=== PATIENT | female | born 1955 | race Caucasian/White ===

== ENCOUNTER 2023-01-03 11:41 | Observation (INO) | payer OTHER, SELFPAY ==
--- NOTE | ~2023-01-03 | CT_ITS ---
CT head for stroke CLINICAL INFORMATION: Reason for Exam New onset confusion COMPARISON: No prior CT scan available for comparison. TECHNIQUE: Department standard protocol. This CT examination was performed using dose optimization techniques as appropriate, variously including the following: *Automated exposure control *Adjustment of mA and/or kV according to patient size (this includes techniques or standardized protocols for targeted exams where dose is matched to indication/reason for exam; i.e. extremities or head) *Use of iterative reconstruction technique DLP: 623 mGy-cm FINDINGS: CEREBRAL HEMISPHERES: There is no evidence of intra-axial or extra-axial mass, hemorrhage or acute infarct. BRAIN PARENCHYMA: Normal parsons-white matter differentiation. SUBDURAL SPACE: No bleed. BASAL GANGLIA AND PINEAL GLAND: Unremarkable VENTRICLES: Symmetric and normal in size. CEREBELLUM AND BRAINSTEM: No space-occupying mass, hemorrhage or acute infarct. CEREBELLOPONTINE ANGLES: No lesion found. ORBITS: No intraorbital mass. VESSELS: The middle cerebral artery is slightly hyperdense however symmetrically involving both sides suggesting normal probably vascular calcification. SKULL BASE: Unremarkable INCLUDED SINUSES AT SKULL BASE: Near complete opacification of the left maxillary sinus. SKULL AND SKIN: No fracture or bone lesion found. CT/CT head for stroke IMPRESSION: No CT evidence of intracranial space-occupying mass, bleed or infarct. Normal CT scan does not rule out the possibility of hyperacute infarct in the first 12 hours. If patient symptoms persist may consider correlation with MRI, which is more sensitive for early acute infarct. This critical result was discussed with Joellen UGALDE at 12 by telephone at 01/03/2023 12:27 PM and it was ascertained that the content and urgency of the report was understood at the time of direct communication.
--- NOTE | ~2023-01-03 | CT_ITS ---
EXAMINATION: CT angio head neck stroke CLINICAL INFORMATION: New-onset confusion. COMPARISON: CT head 01/03/2023. TECHNIQUE: Laser Machine Operator images were obtained. A CT angiogram of the head and neck was performed in the arterial phase after the intravenous administration of 70 mL Omnipaque 350. Pre and delayed postcontrast images of the head were also obtained. MIP reconstructions were generated in multiple orientations at the acquisition workstation. Multiple three-dimensional surface rendered images and maximum intensity projection images were generated on a dedicated 3-D lab workstation. Arterial stenoses are measured in accordance with NASCET criteria or similar method if applicable. This CT examination was performed using dose optimization techniques as appropriate, including one or more of the following: Automated exposure control, iterative reconstruction, and adjustment of technique factors (mA and/or kVp) according to patient size (this includes techniques or standardized protocols for targeted exams where dose is matched to indication/reason for exam). Fleischner Society criteria for the followup of incidental pulmonary nodules was implemented if appropriate. Total exam dose-length product 1399 mGy-cm FINDINGS: Head: Postcontrast images reveal no abnormal intracranial mass or enhancement. There is no intracranial mass effect or midline shift. Lateral and third ventricles are normal. No hydrocephalus. Calderon-white matter differentiation is preserved and there is no evidence of acute territorial infarct. The calvarium and skull base are intact. Mastoid air cells and middle ear cavities are well aerated. There is mild to moderate mucosal thickening within the ethmoid air cells and total opacification of the left maxillary sinus. CT angiogram neck: The aortic arch apex is normal. Origins of the major aortic branches are widely patent. Common carotid arteries and the carotid bifurcations are normal. No stenosis of the extracranial internal carotid arteries. The cervical segments of the vertebral arteries are widely patent. CT angiogram head: Intracranial internal carotid arteries are patent. The intradural vertebral artery segments and basilar artery are patent. 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 There is also an aneurysm at the left middle cerebral artery bifurcation measuring approximately 2.7 mm from base apex. Each of these aneurysms are well visualized on axial MIP image 109 of 152 series 12. Anterior, middle, and posterior cerebral artery complexes are otherwise unremarkable. Other: Soft tissues of the neck including the thyroid gland are normal. Visualized lung apices are clear. No acute osseous finding. Grossly no evidence of spinal canal compromise. 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 Otherwise unremarkable examination in that there is no stenosis of the cervical carotid or vertebral arteries. No intracranial large vessel occlusion. No evidence of acute territorial infarct or hemorrhage. No abnormal intracranial mass or enhancement. This critical result was discussed with Joellen Lazar at 12:45 PM on 01/03/2023 and it was ascertained that the content and urgency of the report was understood at the time of direct communication.
--- NOTE | ~2023-01-03 | XR_ITS ---
EXAMINATION: XR chest 2V CLINICAL INFORMATION: Confusion COMPARISON: No prior chest x-ray available in our system for comparison at the time of this dictation. TECHNIQUE: XR chest 2V Lungs and Jing: Both lungs are clear. Pleura: Normal. Costophrenic angles are sharp. No pneumothorax. Heart: The heart is normal in size. Mediastinum: The mediastinum is within normal limits.. Bones: Skeletal structures included are normal for patient's age. XR/XR chest 2V IMPRESSION: Normal chest x-ray.
[2023-01-03 11:51] VITALS: BP 184/115; PULSE 88; RESP 18; TEMP 36.7; O2SAT 94; BMI 20.5
--- NOTE | 2023-01-03 11:53 | ED_ITS ---
HPI - General Adult General Chief complaint: Altered Mental Status <TRAM Zamora - Last Filed: 01/03/23 11:56> Stated complaint: Unable to remember whats going on <TRAM Zamora - Last Filed: 01/03/23 11:56> Time Seen by Provider: 01/03/23 12:02 <TRAM Zamora - Last Filed: 01/03/23 11:56> Source: patient <TRAM Romero - Last Filed: 01/03/23 14:44> Mode of arrival: ambulatory <TRAM Romero - Last Filed: 01/03/23 14:44> History of Present Illness HPI narrative: 67-year-old female past medical history of smoking cigarettes x50 years, recently stopped with outpatient Wellbutrin prescribed by PCP 2 weeks ago, presenting to the ED with friend for noted acute onset confusion 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 Last known well time 10:30AM. Friend reports patient was frantically looking through cabinets of vehicle for cigarette, & had no recollection of previous smoking cessation, acting bizarre. Patient A&O x2 (does not know president or year). Denies recent head injury/fall or trauma, CP/SOB, abdominal pain, headache, weakness <TRAM Romero - Last Filed: 01/03/23 14:44> Onset (ago): hour(s) <TRAM Romero - Last Filed: 01/03/23 14:44> Related Data Home medications: Home Medications Medication Instructions Recorded Confirmed albuterol sulfate 90 mcg/actuation 2 puff inhalation Q4H PRN 01/03/23 01/03/23 aerosol inhaler Shortness Of Breath Or Wheezing alendronate 70 mg tablet 70 mg PO TU@0900 01/03/23 01/03/23 biotin 5 mg tablet 5 mg PO DAILY 01/03/23 01/03/23 bupropion HCl 150 mg tablet,12 hr 150 mg PO BID 01/03/23 01/03/23 sustained-release calcium citrate 450 mg PO BID 01/03/23 01/03/23 levocetirizine 5 mg tablet 5 mg PO DAILY 01/03/23 01/03/23 multivit with 1 tab PO DAILY 01/03/23 01/03/23 srpebedc-nnyw-YQ-lutein 8 mg iron-400 mcg-300 mcg tablet (Centrum Silver Women) simvastatin 20 mg tablet 20 mg PO DAILY 01/03/23 01/03/23 vitamin D3 125 mcg (5,000 1 cap PO MOWEFR@0900 01/03/23 01/03/23 unit)-vitamin K2 90 mcg capsule <TRAM Zamora Last Filed: 01/03/23 11:56> Allergies/adverse reactions: Allergies Allergy/AdvReac Type Severity Reaction Status Date / Time No Known Allergies Allergy Verified 01/03/23 11:49 <TRAM Zamora Last Filed: 01/03/23 11:56> Review of Systems Review of Systems: Constitutional: No Fever, No Chills, No Fatigue, No Malaise ENT/Mouth: No Ear Pain, No Nasal Congestion,No sore throat, No Rhinorrhea, No Swallowing Difficulty Eyes: No Eye Pain, No Swelling, No Redness, No Vision Changes Cardiovascular: No Chest Pain, No SOB, No Edema, No Palpitations Respiratory: No Cough, No Sputum, No Dyspnea Gastrointestinal: No Nausea, No Vomiting, No Diarrhea, No Constipation, No Ab dominal pain Genitourinary: No Dysuria, No Hematuria, No Urinary Incontinence/retention, No Flank Pain Musculoskeletal: No joint pain, No Myalgias Skin: No Skin Lesions, No rash Neuro: No Weakness, No Numbness, No Paresthesias, No Loss of Consciousness, No Dizziness, No Headache, +confusion <TRAM Romero Last Filed: 01/03/23 14:44> Yes all other systems are reviewed and are negative <TRAM Romero Last Filed: 01/03/23 14:44> Constitutional: Constitutional: Reports as per HPI <TRAM Romero Last Filed: 01/03/23 14:44> Neurologic: Denies Abnormal speech present and Reports confusion <TRAM Romero Last Filed: 01/03/23 14:44> Psychiatric: Psychiatric: Reports confusion <TRAM Romero Last Fi led: 01/03/23 14:44> [facility] Past Medical History Attestation statement: The following information was validated with the patient. <TRAM Romero Last Filed: 01/03/23 14:44> Social History Social History: Social History Alcohol intake: current Alcohol intake frequency: holidays/special occasions only Smoked in Last 30 Days: Yes Use of substances other than those prescribed or required for medical reasons: No Advance Directives: No <TRAM Zamora - Last Filed: 01/03/23 11:56> Physical Exam ED Vital Signs: Vital Signs - 24 hr 01/03/23 11:51 01/03/23 12:36 01/03/23 14:27 Temperature 98.1 F 97 F Pulse Rate 88 67 65 Respiratory Rate 18 18 18 Blood Pressure 184/115 H 193/102 H 169/104 H Pulse Oximetry 94 97 98 Oxygen Delivery Method Room Air Room Air Room Air BMI result Body Mass Index 20.5 <TRAM Zamora Last Filed: 01/03/23 11:56> Vital Signs - 24 hr 01/03/23 11:51 01/03/23 12:36 01/03/23 14:27 Temperature 98.1 F 97 F Pulse Rate 88 67 65 Respiratory Rate 18 18 18 Blood Pressure 184/115 H 193/102 H 169/104 H Pulse Oximetry 94 97 98 Oxygen Delivery Method Room Air Room Air Room Air BMI result Body Mass Index 20.5 <TRAM Romero - Last Filed: 01/03/23 14:44> Const General: cooperative, healthy appearing, comfortable, no acute distress and confusion <TRAM Romero Last Filed: 01/03/23 14:44> Orientation/consciousness: oriented to person, oriented to place and confusion <TRAM Romero Last Filed: 01/03/23 14:44> HENMT Head: Yes normal to inspection and Yes atraumatic <TRAM Romero Last Filed: 01/03/23 14:44> Ears: hearing grossly normal bilaterally <TRAM Romero Last Filed: 01/03/23 14:44> General nose exam: Normal external nose present <TRAM Romero Last Filed: 01/03/23 14:44> Face and sinus: Yes normal facial exam <TRAM Romero Last Filed: 01/03/23 14:44> Throat: Yes posterior oropharynx normal <Joellen Trejochaitanyat PA - Last Filed: 01/03/23 14:44> Eyes General: appearance normal, both eyes and all related structures <Joellenlyn Trejochaitanyat PA - Last Filed: 01/03/23 14:44> Pupils: Equal, round and reactive pupils present <Joellenlyn Trejochaitanyat, PA - Last Filed: 01/03/23 14:44> EOM: EOMs intact bilaterally <Joellen Poulchaitanyat, PA - Last Filed: 01/03/23 14:44> Neck Neck: Yes normal visual inspection and Yes no meningeal signs <Joellen Mayachaitanyat, PA - Last Filed: 01/03/23 14:44> Resp Effort & Inspection: normal respiratory effort and no respiratory distress <Joellen Trejochaitanyat, PA - Last Filed: 01/03/23 14:44> Auscultation: clear to auscultation bilaterally, no rhonchi and no wheezes <Joellen Trejochaitanyat PA - Last Filed: 01/03/23 14:44> Cardio Rate: regular rate <Joellen Trejochaitanyat, PA - Last Filed: 01/03/23 14:44> Heart sounds: S1 normal heart sound present and S2 normal heart sound present <Joellen Trejochaitanyat PA - Last Filed: 01/03/23 14:44> GI Inspection: Yes normal to inspection <Joellen Trejochaitanyat, PA - Last Filed: 01/03/23 14:44> Palpation (GI): Soft to palpation, nontender, no guarding and not rigid <Joellen Mayachaitanyat PA - Last Filed: 01/03/23 14:44> General: Yes no CVA tenderness <Joellen Mayachaitanyat, PA - Last Filed: 01/03/23 14:44> Back/Spine/Pelvis Back: no CVA tenderness <Joellen Poulchaitanyat, PA - Last Filed: 01/03/23 14:44> Skin Rashes: no rashes <Joellen Poulchaitanyat, PA - Last Filed: 01/03/23 14:44> Wounds: no wounds <Joellen Poulchaitanyat PA - Last Filed: 01/03/23 14:44> Neuro Other: + mild left-sided facial droop (patient reports this is chronic) <TRAM Romero - Last Filed: 01/03/23 14:44> General: oriented to person, oriented to place, tone normal, moves all extremities, no meningeal signs, no focal motor deficits, CN's II-XI intact bilaterally and confusion <Joellen Lazar PA - Last Filed: 01/03/23 14:44> Cranial nerves: Yes CN's II-XII intact bilaterally and Yes Equal, round and reactive pupils present <Joellen Lazar PA - Last Filed: 01/03/23 14:44> Speech: No Abnormal speech present <Joellen Lazar PA - Last Filed: 01/03/23 14:44> Gait exam (Neuro): Normal gait present <TRAM Romero - Last Filed: 01/03/23 14:44> Motor exam (neuro): 5/5 motor strength present throughout, Pronator motor function not pre sent, no tremor noted and no asterixis <TRAM Romero - Last Filed: 01/03/23 14:44> Coordination: bqvyko-gg-htom test normal <TRAM Romero - Last Filed: 01/03/23 14:44> Romberg Test: Negative <TRAM Romero - Last Filed: 01/03/23 14:44> Extrem General: Yes normal to inspection and Yes no pedal edema <TRAM Romero - Last Filed: 01/03/23 14:44> NIH Stroke Scale Internal: Initial- Upon Arrival <TRAM Romero - Last Filed: 01/03/23 14:44> Level of Consciousness: Alert <RTAM Romero - Last Filed: 01/03/23 14:44> Level of Consciousness Questions: Answers both questions correctly <TRAM Romero - Last Filed: 01/03/23 14:44> Level of Consciousness Commands: Performs both tasks correctly <TRAM Romero - Last Filed: 01/03/23 14:44> Best Gaze: Normal <TRAM Romero - Last Filed: 01/03/23 14:44> Visual: No visual loss <Joellen Pouliot, PA - Last Filed: 01/03/23 14:44> Facial Palsy: Normal <Joellen Lazar PA - Last Filed: 01/03/23 14:44> Motor Arm (Right): No drift <Joellen Lazar PA - Last Filed: 01/03/23 14:44> Motor Arm (Left): No drift <Joellen Lazar PA - Last Filed: 01/03/23 14:44> Motor Leg (Right): No drift <Joellen Lazar PA - Last Filed: 01/03/23 14:44> Motor Leg (Left): No drift <Joellen Lazar PA - Last Filed: 01/03/23 14:44> Limb Ataxia: Absent <Joellen Lazar PA - Last Filed: 01/03/23 14:44> Sensory: Normal <Joellen Lazar PA - Last Filed: 01/03/23 14:44> Best Language: No aphasia <TRAM Romero - Last Filed: 01/03/23 14:44> Dysarthia: Normal <Joellen Lazar PA - Last Filed: 01/03/23 14:44> Extinction and Inattention: No abnormality <TRAM Romero - Last Filed: 01/03/23 14:44> Score: 0 <TRAM Romero - Last Filed: 01/03/23 14:44> Course Course Course Narrative: RME performed by Anna Glover PA-C. Patient is a 67 year old assigned female at presenting to the emergency department with worsening confusion over the last 1.5 hours. Patient quit smoking 2 weeks ago, doesn't remember that. Patient's guest at bed side states that she was started on a medication to help quit smoking but he isn't sure what it was. Patient's daughter is on the way down. Labs, imaging, and swab ordered. Patient placed back in the waiting room pending room availability and results. <TRAM Zamora Last Filed: 01/03/23 11:56> RME performed by Anna Glover PA-C. Patient is a 67 year old assigned female at presenting to the emergency department with worsening confusion over the last 1.5 hours. Patient quit smoking 2 weeks ago, doesn't remember that. Patient's guest at bed side states that she was started on a medication to help quit smoking but he isn't sure what it was. Patient's daughter is on the way down. Labs, imaging, and swab ordered. Patient placed back in the waiting room pending room availability and results. CT head for stroke IMPRESSION: No CT evidence of intracranial space-occupying mass, bleed or infarct. ? Normal CT scan does not rule out the possibility of hyperacute infarct in the first 12 hours. If patient symptoms persist may consider correlation with MRI, which is more sensitive for early acute infarct. CT angio head? 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 Otherwise unremarkable examination in that there is no stenosis of the cervical carotid or vertebral arteries. No intracranial large vessel occlusion. No evidence of acute territorial infarct or hemorrhage. No abnormal intracranial mass or enhancement. > case discussed with Neurology, Dr. Castillo, does not believe this is an acute stroke XR chest 2V IMPRESSION: Normal chest x-ray. -labs unremarkable. UA negative. Tox screen negative >> plan to admit for further management <TRAM Romero - Last Filed: 01/03/23 14:44> Medications Administered Discontinued Medications Generic Name Dose Route Start Last Admin Trade Name Freq PRN Reason Stop Dose Admin Iohexol 70 ml 01/03/23 12:30 01/03/23 12:30 Iohexol 350 Mg/Ml 100 Ml Infus..Btl IV 01/03/23 12:31 70 ml ONCE ONE Administration <TRAM Zamora - Last Filed: 01/03/23 11:56> Medications Administered Discontinued Medications Generic Name Dose Route Start Last Admin Trade Name Freq PRN Reason Stop Dose Admin Iohexol 70 ml 01/03/23 12:30 01/03/23 12:30 Iohexol 350 Mg/Ml 100 Ml Infus..Btl IV 01/03/23 12:31 70 ml ONCE ONE Administration <TRAM Romero - Last Filed: 01/03/23 14:44> Medical Decision Making Medical Decision Making MDM Narrative: 67-year-old female past medical history of smoking cigarettes x50 years, recently stopped with outpatient Wellbutrin prescribed by PCP 2 weeks ago, presenting to the ED with friend for noted acute onset confusion 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 Last known well time 10:30AM. On exam hypertensive, anxious, tearful, confused does not know new President or year, mild left-sided facial droop (patient reports is chronic), exam otherwise nonfocal, ambulating with steady gait. Concern for acute CVA vs TIA vs substance abuse vs ?Medication reaction. Rule out metabolic and infectious etiologies Patient stroke protocoled Plan: EKG, labs, UA, CXR, head CT, CTA head and neck, drug screen, admission Please refer to course for remaining clinical decision making, interpretation of labs/imaging results, and discussions with consultants and/or family members. <TRAM Romero - Last Filed: 01/03/23 14:44> Differential Diagnosis Differential Diagnoses: The differential diagnosis associated with the presentation includes <TRAM Romero - Last Filed: 01/03/23 14:44> As above <TRAM Romero - Last Filed: 01/03/23 14:44> Admission/Observation Consideration of admission/observation: Escalation of care including admission/observation considered <TRAM Romero - Last Filed: 01/03/23 14:44> Lab Data MDM Lab Attestation statement: I reviewed the patient's lab results. <TRAM Romero - Last Filed: 01/03/23 14:44> Result Diagrams: 01/03/23 12:15 01/03/23 12:15 <TRAM Zamora - Last Filed: 01/03/23 11:56> Labs: Lab Results 01/03/23 01/03/23 01/03/23 Range/Units 12:15 12:15 12:15 WBC 11.0 H (4.8-10.8) X10*3/uL RBC 5.09 (4.20-5.50) X10*6/uL Hgb 15.8 (12.0-16.0) g/dl Hct 46.7 (37.0-47.0) % MCV 91.7 (80.0-98.0) fL MCH 31.0 (27.0-33.0) pg MCHC 33.8 (31.0-35.0) g/dl RDW 13.2 (11.0-16.0) % Plt Count 327 (160-400) X10*3/uL MPV 9.4 (9.4-12.3) fL Immature Gran % (Auto) 0.2 (0.0-0.4) % Neut % (Auto) 57.4 (45-73) % Lymph % (Auto) 30.3 (20-40) % Rapides % (Auto) 6.8 (2-11) % Eos % (Auto) 4.3 H (0-4) % Baso % (Auto) 1.0 (0-2) % Lymph # (Auto) 3.3 (1.2-4.9) X10*3/uL [place] # (Auto) 0.8 (0.1-1.2) X10*3/uL Eos # (Auto) 0.5 H (0.0-0.4) X10*3/uL Baso # (Auto) 0.1 (0.0-0.2) X10*3/uL Abs Immat Gran (auto) 0.02 (0.00-0.03) X10*3/uL Absolute Neuts (auto) 6.3 (2.0-8.3) x10*3/uL Absolute Nucleated RBC 0.000 (0.0-0.012) X10*3/uL Nucleated RBC % (auto) 0.0 (0.0-0.2) /100WBC PT (10.0-13.1) SEC Whole Blood PT (11.1-13.5) sec INR (0.9-1.1) Whole Blood INR (0.9-1.1) APTT (26.0-36.4) SEC Sodium 141 (135-145) mmol/L Potassium 5.0 (3.3-5.1) mmol/L Chloride 108 (96-108) mmol/L Carbon Dioxide 22 (22-29) mmol/L Anion Gap 16 (12-20) BUN 15 (9-16) mg/dL Creatinine 0.71 (0.5-1.4) mg/dL Estim Creat Clear Calc 69.0 Estimated GFR > 60 POC Glucose (60-115) mg/dL Random Glucose 90 (60-115) mg/dL Calcium 10.0 (8.4-10.2) mg/dL Magnesium 2.2 (1.6-2.6) mg/dL Total Bilirubin 0.7 (0.0-1.0) mg/dL AST 33 H (5-31) U/L ALT 25 (0-31) U/L Alkaline Phosphatase 69 (39-117) U/L Ammonia 23 (13-55) umol/L Troponin I High Sens (<3.5-17.0) ng/L Total Protein 7.6 (6.5-8.0) g/dL Albumin 4.6 (3.5-5.0) g/dL Urine Color Urine Appearance Urine pH (5.0-9.0) Ur Specific Blackwell (1.005-1.025) Urine Protein (Neg-Trace) mg/dL Urine Glucose (UA) (Negative) mg/dL Urine Ketones (Negative) mg/dL Urine Blood (Negative) Urine Nitrite (Negative) Ur Leukocyte Esterase (Negative) Urine Opiates Screen (Not Detect) Urine Fentanyl Screen (Not Detect) Ur Barbiturates Screen (Not Detect) Ur Phencyclidine Scrn (Not Detect) Ur Amphetamines Screen (Not Detect) U Benzodiazepines Scrn (Not Detect) Urine Cocaine Screen (Not Detect) U Marijuana (THC) Screen (Not Detect) Ethyl Alcohol mg/dL COVID-19 ([facility]) (Negative) COVID-19 Clin Com 01/03/23 01/03/23 01/03/23 Range/Units 12:15 12:15 12:15 WBC (4.8-10.8) X10*3/uL RBC (4.20-5.50) X10*6/uL Hgb (12.0-16.0) g/dl Hct (37.0-47.0) % MCV (80.0-98.0) fL MCH (27.0-33.0) pg MCHC (31.0-35.0) g/dl RDW (11.0-16.0) % Plt Count (160-400) X10*3/uL MPV (9.4-12.3) fL Immature Gran % (Auto) (0.0-0.4) % Neut % (Auto) (45-73) % Lymph % (Auto) (20-40) % Rapides % (Auto) (2-11) % Eos % (Auto) (0-4) % Baso % (Auto) (0-2) % Lymph # (Auto) (1.2-4.9) X10*3/uL [place] # (Auto) (0.1-1.2) X10*3/uL Eos # (Auto) (0.0-0.4) X10*3/uL Baso # (Auto) (0.0-0.2) X10*3/uL Abs Immat Gran (auto) (0.00-0.03) X10*3/uL Absolute Neuts (auto) (2.0-8.3) x10*3/uL Absolute Nucleated RBC (0.0-0.012) X10*3/uL Nucleated RBC % (auto) (0.0-0.2) /100WBC PT 10.3 (10.0-13.1) SEC Whole Blood PT (11.1-13.5) sec INR 0.9 (0.9-1.1) Whole Blood INR (0.9-1.1) APTT 34.1 (26.0-36.4) SEC Sodium (135-145) mmol/L Potassium (3.3-5.1) mmol/L Chloride (96-108) mmol/L Carbon Dioxide (22-29) mmol/L Anion Gap (12-20) BUN (9-16) mg/dL Creatinine (0.5-1.4) mg/dL Estim Creat Clear Calc Estimated GFR POC Glucose (60-115) mg/dL Random Glucose (60-115) mg/dL Calcium (8.4-10.2) mg/dL Magnesium (1.6-2.6) mg/dL Total Bilirubin (0.0-1.0) mg/dL AST (5-31) U/L ALT (0-31) U/L Alkaline Phosphatase (39-117) U/L Ammonia (13-55) umol/L Troponin I High Sens 4.9 (<3.5-17.0) ng/L Total Protein (6.5-8.0) g/dL Albumin (3.5-5.0) g/dL Urine Color Urine Appearance Urine pH (5.0-9.0) Ur Specific Blackwell (1.005-1.025) Urine Protein (Neg-Trace) mg/dL Urine Glucose (UA) (Negative) mg/dL Urine Ketones (Negative) mg/dL Urine Blood (Negative) Urine Nitrite (Negative) Ur Leukocyte Esterase (Negative) Urine Opiates Screen (Not Detect) Urine Fentanyl Screen (Not Detect) Ur Barbiturates Screen (Not Detect) Ur Phencyclidine Scrn (Not Detect) Ur Amphetamines Screen (Not Detect) U Benzodiazepines Scrn (Not Detect) Urine Cocaine Screen (Not Detect) U Marijuana (THC) Screen (Not Detect) Ethyl Alcohol < 10 mg/dL COVID-19 ([facility]) (Negative) COVID-19 Clin Com 01/03/23 01/03/23 01/03/23 Range/Units 12:22 12:22 12:42 WBC (4.8-10.8) X10*3/uL RBC (4.20-5.50) X10*6/uL Hgb (12.0-16.0) g/dl Hct (37.0-47.0) % MCV (80.0-98.0) fL MCH (27.0-33.0) pg MCHC (31.0-35.0) g/dl RDW (11.0-16.0) % Plt Count (160-400) X10*3/uL MPV (9.4-12.3) fL Immature Gran % (Auto) (0.0-0.4) % Neut % (Auto) (45-73) % Lymph % (Auto) (20-40) % Rapides % (Auto) (2-11) % Eos % (Auto) (0-4) % Baso % (Auto) (0-2) % Lymph # (Auto) (1.2-4.9) X10*3/uL [place] # (Auto) (0.1-1.2) X10*3/uL Eos # (Auto) (0.0-0.4) X10*3/uL Baso # (Auto) (0.0-0.2) X10*3/uL Abs Immat Gran (auto) (0.00-0.03) X10*3/uL Absolute Neuts (auto) (2.0-8.3) x10*3/uL Absolute Nucleated RBC (0.0-0.012) X10*3/uL Nucleated RBC % (auto) (0.0-0.2) /100WBC PT (10.0-13.1) SEC Whole Blood PT 12.5 (11.1-13.5) sec INR (0.9-1.1) Whole Blood INR 1.0 (0.9-1.1) APTT (26.0-36.4) SEC Sodium (135-145) mmol/L Potassium (3.3-5.1) mmol/L Chloride (96-108) mmol/L Carbon Dioxide (22-29) mmol/L Anion Gap (12-20) BUN (9-16) mg/dL Creatinine (0.5-1.4) mg/dL Estim Creat Clear Calc Estimated GFR POC Glucose 97 (60-115) mg/dL Random Glucose (60-115) mg/dL Calcium (8.4-10.2) mg/dL Magnesium (1.6-2.6) mg/dL Total Bilirubin (0.0-1.0) mg/dL AST (5-31) U/L ALT (0-31) U/L Alkaline Phosphatase (39-117) U/L Ammonia (13-55) umol/L Troponin I High Sens (<3.5-17.0) ng/L Total Protein (6.5-8.0) g/dL Albumin (3.5-5.0) g/dL Urine Color Urine Appearance Urine pH (5.0-9.0) Ur Specific Blackwell (1.005-1.025) Urine Protein (Neg-Trace) mg/dL Urine Glucose (UA) (Negative) mg/dL Urine Ketones (Negative) mg/dL Urine Blood (Negative) Urine Nitrite (Negative) Ur Leukocyte Esterase (Negative) Urine Opiates Screen (Not Detect) Urine Fentanyl Screen (Not Detect) Ur Barbiturates Screen (Not Detect) Ur Phencyclidine Scrn (Not Detect) Ur Amphetamines Screen (Not Detect) U Benzodiazepines Scrn (Not Detect) Urine Cocaine Screen (Not Detect) U Marijuana (THC) Screen (Not Detect) Ethyl Alcohol mg/dL COVID-19 ([facility]) Negative (Negative) COVID-19 Clin Com See Note 01/03/23 01/03/23 Range/Units 12:58 12:58 WBC (4.8-10.8) X10*3/uL RBC (4.20-5.50) X10*6/uL Hgb (12.0-16.0) g/dl Hct (37.0-47.0) % MCV (80.0-98.0) fL MCH (27.0-33.0) pg MCHC (31.0-35.0) g/dl RDW (11.0-16.0) % Plt Count (160-400) X10*3/uL MPV (9.4-12.3) fL Immature Gran % (Auto) (0.0-0.4) % Neut % (Auto) (45-73) % Lymph % (Auto) (20-40) % Rapides % (Auto) (2-11) % Eos % (Auto) (0-4) % Baso % (Auto) (0-2) % Lymph # (Auto) (1.2-4.9) X10*3/uL [place] # (Auto) (0.1-1.2) X10*3/uL Eos # (Auto) (0.0-0.4) X10*3/uL Baso # (Auto) (0.0-0.2) X10*3/uL Abs Immat Gran (auto) (0.00-0.03) X10*3/uL Absolute Neuts (auto) (2.0-8.3) x10*3/uL Absolute Nucleated RBC (0.0-0.012) X10*3/uL Nucleated RBC % (auto) (0.0-0.2) /100WBC PT (10.0-13.1) SEC Whole Blood PT (11.1-13.5) sec INR (0.9-1.1) Whole Blood INR (0.9-1.1) APTT (26.0-36.4) SEC Sodium (135-145) mmol/L Potassium (3.3-5.1) mmol/L Chloride (96-108) mmol/L Carbon Dioxide (22-29) mmol/L Anion Gap (12-20) BUN (9-16) mg/dL Creatinine (0.5-1.4) mg/dL Estim Creat Clear Calc Estimated GFR POC Glucose (60-115) mg/dL Random Glucose (60-115) mg/dL Calcium (8.4-10.2) mg/dL Magnesium (1.6-2.6) mg/dL Total Bilirubin (0.0-1.0) mg/dL AST (5-31) U/L ALT (0-31) U/L Alkaline Phosphatase (39-117) U/L Ammonia (13-55) umol/L Troponin I High Sens (<3.5-17.0) ng/L Total Protein (6.5-8.0) g/dL Albumin (3.5-5.0) g/dL Urine Color Yellow Urine Appearance Clear Urine pH 6.5 (5.0-9.0) Ur Specific Blackwell 1.020 (1.005-1.025) Urine Protein Negative (Neg-Trace) mg/dL Urine Glucose (UA) Negative (Negative) mg/dL Urine Ketones Negative (Negative) mg/dL Urine Blood Negative (Negative) Urine Nitrite Negative (Negative) Ur Leukocyte Esterase Negative (Negative) Urine Opiates Screen Not Detected (Not Detect) Urine Fentanyl Screen Not Detected (Not Detect) Ur Barbiturates Screen Not Detected (Not Detect) Ur Phencyclidine Scrn Not Detected (Not Detect) Ur Amphetamines Screen Not Detected (Not Detect) U Benzodiazepines Scrn Not Detected (Not Detect) Urine Cocaine Screen Not Detected (Not Detect) U Marijuana (THC) Screen Not Detected (Not Detect) Ethyl Alcohol mg/dL COVID-19 ([facility]) (Negative) COVID-19 Clin Com <TRAM Zamora - Last Filed: 01/03/23 11:56> Lab Results 01/03/23 01/03/23 01/03/23 Range/Units 12:15 12:15 12:15 WBC 11.0 H (4.8-10.8) X10*3/uL RBC 5.09 (4.20-5.50) X10*6/uL Hgb 15.8 (12.0-16.0) g/dl Hct 46.7 (37.0-47.0) % MCV 91.7 (80.0-98.0) fL MCH 31.0 (27.0-33.0) pg MCHC 33.8 (31.0-35.0) g/dl RDW 13.2 (11.0-16.0) % Plt Count 327 (160-400) X10*3/uL MPV 9.4 (9.4-12.3) fL Immature Gran % (Auto) 0.2 (0.0-0.4) % Neut % (Auto) 57.4 (45-73) % Lymph % (Auto) 30.3 (20-40) % Rapides % (Auto) 6.8 (2-11) % Eos % (Auto) 4.3 H (0-4) % Baso % (Auto) 1.0 (0-2) % Lymph # (Auto) 3.3 (1.2-4.9) X10*3/uL [place] # (Auto) 0.8 (0.1-1.2) X10*3/uL Eos # (Auto) 0.5 H (0.0-0.4) X10*3/uL Baso # (Auto) 0.1 (0.0-0.2) X10*3/uL Abs Immat Gran (auto) 0.02 (0.00-0.03) X10*3/uL Absolute Neuts (auto) 6.3 (2.0-8.3) x10*3/uL Absolute Nucleated RBC 0.000 (0.0-0.012) X10*3/uL Nucleated RBC % (auto) 0.0 (0.0-0.2) /100WBC PT (10.0-13.1) SEC Whole Blood PT (11.1-13.5) sec INR (0.9-1.1) Whole Blood INR (0.9-1.1) APTT (26.0-36.4) SEC Sodium 141 (135-145) mmol/L Potassium 5.0 (3.3-5.1) mmol/L Chloride 108 (96-108) mmol/L Carbon Dioxide 22 (22-29) mmol/L Anion Gap 16 (12-20) BUN 15 (9-16) mg/dL Creatinine 0.71 (0.5-1.4) mg/dL Estim Creat Clear Calc 69.0 Estimated GFR > 60 POC Glucose (60-115) mg/dL Random Glucose 90 (60-115) mg/dL Calcium 10.0 (8.4-10.2) mg/dL Magnesium 2.2 (1.6-2.6) mg/dL Total Bilirubin 0.7 (0.0-1.0) mg/dL AST 33 H (5-31) U/L ALT 25 (0-31) U/L Alkaline Phosphatase 69 (39-117) U/L Ammonia 23 (13-55) umol/L Troponin I High Sens (<3.5-17.0) ng/L Total Protein 7.6 (6.5-8.0) g/dL Albumin 4.6 (3.5-5.0) g/dL Urine Color Urine Appearance Urine pH (5.0-9.0) Ur Specific [place] (1.005-1.025) Urine Protein (Neg-Trace) mg/dL Urine Glucose (UA) (Negative) mg/dL Urine Ketones (Negative) mg/dL Urine Blood (Negative) Urine Nitrite (Negative) Ur Leukocyte Esterase (Negative) Urine Opiates Screen (Not Detect) Urine Fentanyl Screen (Not Detect) Ur Barbiturates Screen (Not Detect) Ur Phencyclidine Scrn (Not Detect) Ur Amphetamines Screen (Not Detect) U Benzodiazepines Scrn (Not Detect) Urine Cocaine Screen (Not Detect) U Marijuana (THC) Screen (Not Detect) Ethyl Alcohol mg/dL COVID-19 ([facility]) (Negative) COVID-19 Clin Com 01/03/23 01/03/23 01/03/23 Range/Units 12:15 12:15 12:15 WBC (4.8-10.8) X10*3/uL RBC (4.20-5.50) X10*6/uL Hgb (12.0-16.0) g/dl Hct (37.0-47.0) % MCV (80.0-98.0) fL MCH (27.0-33.0) pg MCHC (31.0-35.0) g/dl RDW (11.0-16.0) % Plt Count (160-400) X10*3/uL MPV (9.4-12.3) fL Immature Gran % (Auto) (0.0-0.4) % Neut % (Auto) (45-73) % Lymph % (Auto) (20-40) % [place] % (Auto) (2-11) % Eos % (Auto) (0-4) % Baso % (Auto) (0-2) % Lymph # (Auto) (1.2-4.9) X10*3/uL [place] # (Auto) (0.1-1.2) X10*3/uL Eos # (Auto) (0.0-0.4) X10*3/uL Baso # (Auto) (0.0-0.2) X10*3/uL Abs Immat Gran (auto) (0.00-0.03) X10*3/uL Absolute Neuts (auto) (2.0-8.3) x10*3/uL Absolute Nucleated RBC (0.0-0.012) X10*3/uL Nucleated RBC % (auto) (0.0-0.2) /100WBC PT 10.3 (10.0-13.1) SEC Whole Blood PT (11.1-13.5) sec INR 0.9 (0.9-1.1) Whole Blood INR (0.9-1.1) APTT 34.1 (26.0-36.4) SEC Sodium (135-145) mmol/L Potassium (3.3-5.1) mmol/L Chloride (96-108) mmol/L Carbon Dioxide (22-29) mmol/L Anion Gap (12-20) BUN (9-16) mg/dL Creatinine (0.5-1.4) mg/dL Estim Creat Clear Calc Estimated GFR POC Glucose (60-115) mg/dL Random Glucose (60-115) mg/dL Calcium (8.4-10.2) mg/dL Magnesium (1.6-2.6) mg/dL Total Bilirubin (0.0-1.0) mg/dL AST (5-31) U/L ALT (0-31) U/L Alkaline Phosphatase (39-117) U/L Ammonia (13-55) umol/L Troponin I High Sens 4.9 (<3.5-17.0) ng/L Total Protein (6.5-8.0) g/dL Albumin (3.5-5.0) g/dL Urine Color Urine Appearance Urine pH (5.0-9.0) Ur Specific [place] (1.005-1.025) Urine Protein (Neg-Trace) mg/dL Urine Glucose (UA) (Negative) mg/dL Urine Ketones (Negative) mg/dL Urine Blood (Negative) Urine Nitrite (Negative) Ur Leukocyte Esterase (Negative) Urine Opiates Screen (Not Detect) Urine Fentanyl Screen (Not Detect) Ur Barbiturates Screen (Not Detect) Ur Phencyclidine Scrn (Not Detect) Ur Amphetamines Screen (Not Detect) U Benzodiazepines Scrn (Not Detect) Urine Cocaine Screen (Not Detect) U Marijuana (THC) Screen (Not Detect) Ethyl Alcohol < 10 mg/dL COVID-19 ([facility]) (Negative) COVID-19 Clin Com 01/03/23 01/03/23 01/03/23 Range/Units 12:22 12:22 12:42 WBC (4.8-10.8) X10*3/uL RBC (4.20-5.50) X10*6/uL Hgb (12.0-16.0) g/dl Hct (37.0-47.0) % MCV (80.0-98.0) fL MCH (27.0-33.0) pg MCHC (31.0-35.0) g/dl RDW (11.0-16.0) % Plt Count (160-400) X10*3/uL MPV (9.4-12.3) fL Immature Gran % (Auto) (0.0-0.4) % Neut % (Auto) (45-73) % Lymph % (Auto) (20-40) % [place] % (Auto) (2-11) % Eos % (Auto) (0-4) % Baso % (Auto) (0-2) % Lymph # (Auto) (1.2-4.9) X10*3/uL [place] # (Auto) (0.1-1.2) X10*3/uL Eos # (Auto) (0.0-0.4) X10*3/uL Baso # (Auto) (0.0-0.2) X10*3/uL Abs Immat Gran (auto) (0.00-0.03) X10*3/uL Absolute Neuts (auto) (2.0-8.3) x10*3/uL Absolute Nucleated RBC (0.0-0.012) X10*3/uL Nucleated RBC % (auto) (0.0-0.2) /100WBC PT (10.0-13.1) SEC Whole Blood PT 12.5 (11.1-13.5) sec INR (0.9-1.1) Whole Blood INR 1.0 (0.9-1.1) APTT (26.0-36.4) SEC Sodium (135-145) mmol/L Potassium (3.3-5.1) mmol/L Chloride (96-108) mmol/L Carbon Dioxide (22-29) mmol/L Anion Gap (12-20) BUN (9-16) mg/dL Creatinine (0.5-1.4) mg/dL Estim Creat Clear Calc Estimated GFR POC Glucose 97 (60-115) mg/dL Random Glucose (60-115) mg/dL Calcium (8.4-10.2) mg/dL Magnesium (1.6-2.6) mg/dL Total Bilirubin (0.0-1.0) mg/dL AST (5-31) U/L ALT (0-31) U/L Alkaline Phosphatase (39-117) U/L Ammonia (13-55) umol/L Troponin I High Sens (<3.5-17.0) ng/L Total Protein (6.5-8.0) g/dL Albumin (3.5-5.0) g/dL Urine Color Urine Appearance Urine pH (5.0-9.0) Ur Specific [place] (1.005-1.025) Urine Protein (Neg-Trace) mg/dL Urine Glucose (UA) (Negative) mg/dL Urine Ketones (Negative) mg/dL Urine Blood (Negative) Urine Nitrite (Negative) Ur Leukocyte Esterase (Negative) Urine Opiates Screen (Not Detect) Urine Fentanyl Screen (Not Detect) Ur Barbiturates Screen (Not Detect) Ur Phencyclidine Scrn (Not Detect) Ur Amphetamines Screen (Not Detect) U Benzodiazepines Scrn (Not Detect) Urine Cocaine Screen (Not Detect) U Marijuana (THC) Screen (Not Detect) Ethyl Alcohol mg/dL COVID-19 ([facility]) Negative (Negative) COVID-19 Clin Com See Note 01/03/23 01/03/23 Range/Units 12:58 12:58 WBC (4.8-10.8) X10*3/uL RBC (4.20-5.50) X10*6/uL Hgb (12.0-16.0) g/dl Hct (37.0-47.0) % MCV (80.0-98.0) fL MCH (27.0-33.0) pg MCHC (31.0-35.0) g/dl RDW (11.0-16.0) % Plt Count (160-400) X10*3/uL MPV (9.4-12.3) fL Immature Gran % (Auto) (0.0-0.4) % Neut % (Auto) (45-73) % Lymph % (Auto) (20-40) % [place] % (Auto) (2-11) % Eos % (Auto) (0-4) % Baso % (Auto) (0-2) % Lymph # (Auto) (1.2-4.9) X10*3/uL [place] # (Auto) (0.1-1.2) X10*3/uL Eos # (Auto) (0.0-0.4) X10*3/uL Baso # (Auto) (0.0-0.2) X10*3/uL Abs Immat Gran (auto) (0.00-0.03) X10*3/uL Absolute Neuts (auto) (2.0-8.3) x10*3/uL Absolute Nucleated RBC (0.0-0.012) X10*3/uL Nucleated RBC % (auto) (0.0-0.2) /100WBC PT (10.0-13.1) SEC Whole Blood PT (11.1-13.5) sec INR (0.9-1.1) Whole Blood INR (0.9-1.1) APTT (26.0-36.4) SEC Sodium (135-145) mmol/L Potassium (3.3-5.1) mmol/L Chloride (96-108) mmol/L Carbon Dioxide (22-29) mmol/L Anion Gap (12-20) BUN (9-16) mg/dL Creatinine (0.5-1.4) mg/dL Estim Creat Clear Calc Estimated GFR POC Glucose (60-115) mg/dL Random Glucose (60-115) mg/dL Calcium (8.4-10.2) mg/dL Magnesium (1.6-2.6) mg/dL Total Bilirubin (0.0-1.0) mg/dL AST (5-31) U/L ALT (0-31) U/L Alkaline Phosphatase (39-117) U/L Ammonia (13-55) umol/L Troponin I High Sens (<3.5-17.0) ng/L Total Protein (6.5-8.0) g/dL Albumin (3.5-5.0) g/dL Urine Color Yellow Urine Appearance Clear Urine pH 6.5 (5.0-9.0) Ur Specific [place] 1.020 (1.005-1.025) Urine Protein Negative (Neg-Trace) mg/dL Urine Glucose (UA) Negative (Negative) mg/dL Urine Ketones Negative (Negative) mg/dL Urine Blood Negative (Negative) Urine Nitrite Negative (Negative) Ur Leukocyte Esterase Negative (Negative) Urine Opiates Screen Not Detected (Not Detect) Urine Fentanyl Screen Not Detected (Not Detect) Ur Barbiturates Screen Not Detected (Not Detect) Ur Phencyclidine Scrn Not Detected (Not Detect) Ur Amphetamines Screen Not Detected (Not Detect) U Benzodiazepines Scrn Not Detected (Not Detect) Urine Cocaine Screen Not Detected (Not Detect) U Marijuana (THC) Screen Not Detected (Not Detect) Ethyl Alcohol mg/dL COVID-19 ([facility]) (Negative) COVID-19 Clin Com <TRAM Romero - Last Filed: 01/03/23 14:44> Radiology Impression Discussion of test interpretation with radiology: I have reviewed the radiologist's reading. <TRAM Romero - Last Filed: 01/03/23 14:44> External Record Review External record reviewed: Inpatient record, Office record, Outpatient record, Prior outpatient labs, Prior outpatient radiology, Primary care record and Outside ED record <TRAM Romero - Last Filed: 01/03/23 14:44> Critical Care Time Critical Care Time Critical Care Time: Yes <TRAM Romero - Last Filed: 01/03/23 14:44> Total Critical Care Time: 45 <TRAM Romero - Last Filed: 01/03/23 14:44> Attestation: I have personally provided critical care time exclusive of time spent on separately billable procedures. Time includes review of lab data, radiology results, discussion with consultants, and monitoring for potential decompensation. Intervention performed as documented. <TRAM Romero - Last Filed: 01/03/23 14:44> Discharge Plan Discharge Clinical Impression: Acute confusion <TRAM Zamora - Last Filed: 01/03/23 11:56> Patient Disposition: Admitted As Inpatient <TRAM Zamora - Last Filed: 01/03/23 11:56>
--- NOTE | 2023-01-03 11:54 | ECG_ITS ---
Test Reason : QUESTION STROKE Blood Pressure : / mmHG Vent. Rate : 066 BPM Atrial Rate : 066 BPM P-R Int : 176 ms QRS Dur : 090 ms QT Int : 430 ms P-R-T Axes : 056 004 036 degrees QTc Int : 450 ms Normal sinus rhythm Normal ECG No previous ECGs available Referred By: Anna Glover Electronically Signed By:Aquilino Lacy
[2023-01-03 12:27] LABS: Glucose, Whole Blood 97 mg/dL (60-115); Prothrombin Time Whole Bld POC 12.5 sec (11.1-13.5)
[2023-01-03] MEDS: iohexoL 350 MG/ML 100 ML INFUS..BTL 70 ML IV (12:30)
[2023-01-03 12:31] LABS: Ammonia 23 umol/L (13-55); Partial Thromboplastin Time 34.1 SEC (26.0-36.4)
[2023-01-03 12:35] LABS: Basophils Absolute Auto 0.1 X10*3/uL (0.0-0.2); Eosinophils Absolute Auto 0.5 X10*3/uL (0.0-0.4); Eosinophils Percent Auto 4.3 % (0-4); Ethanol < 10 mg/dL; Hematocrit 46.7 % (37.0-47.0); Hemoglobin 15.8 g/dl (12.0-16.0); Imm Gran Abs Auto 0.02 X10*3/uL (0.00-0.03); Imm Gran Pct Auto 0.2 % (0.0-0.4); Lymphocytes Absolute Auto 3.3 X10*3/uL (1.2-4.9); Lymphocytes Percent Auto 30.3 % (20-40); MANUAL DIFF FLAG NO; Mean Corpuscular HGB Conc 33.8 g/dl (31.0-35.0); Mean Corpuscular Volume 91.7 fL (80.0-98.0); Mean Platelet Volume 9.4 fL (9.4-12.3); Monocytes Absolute Auto 0.8 X10*3/uL (0.1-1.2); Monocytes Percent Auto 6.8 % (2-11); Neutrophils Absolute Auto 6.3 x10*3/uL (2.0-8.3); Neutrophils Percent Auto 57.4 % (45-73); Platelet Count 327 X10*3/uL (160-400); Red Blood Count 5.09 X10*6/uL (4.20-5.50); Red Cell Distribution Width 13.2 % (11.0-16.0)
[2023-01-03 12:36] VITALS: BP 193/102; PULSE 67; RESP 18; O2SAT 97
[2023-01-03 12:38] LABS: Alanine Aminotransferase 25 U/L (0-31); Albumin Level 4.6 g/dL (3.5-5.0); Alkaline Phosphatase 69 U/L (39-117); Anion Gap 16 (12-20); Aspartate Amino Transferase 33 U/L (5-31); Bilirubin Total 0.7 mg/dL (0.0-1.0); Blood Urea Nitrogen 15 mg/dL (9-16); Carbon Dioxide 22 mmol/L (22-29); Chloride 108 mmol/L (96-108); Estimated Glomerular Filt Rate > 60; Glucose Random 90 mg/dL (60-115); Magnesium 2.2 mg/dL (1.6-2.6); Sodium 141 mmol/L (135-145); Total Protein 7.6 g/dL (6.5-8.0)
[2023-01-03 12:39] LABS: INTERNATIONAL NORM RATIO 0.9 (0.9-1.1); Prothrombin Time 10.3 SEC (10.0-13.1)
[2023-01-03 12:42] LABS: Troponin-I High Sensitivity 4.9 ng/L (<3.5-17.0)
--- NOTE | 2023-01-03 12:44 | PC.NURSE ---
pt alert, oriented to persona and place but unsure of time. denies any pain, denies trauma, denies thinners. slight left facial unequal smial, reports crooked smile all other facial and other nuro markers intact.
[2023-01-03 12:58] LABS: COVID-19 Test Negative (Negative); IDNOW Serial# BCCEAD1C
[2023-01-03 13:12] LABS: Appearance Urine Clear; Color Urine Yellow; Glucose Urine UA Negative (Negative); Leukocyte Esterase Urine Negative (Negative); Nitrite Urine Negative (Negative); PH 6.5 (5.0-9.0); Urine Blood Negative (Negative); Urine Ketones Negative (Negative); Urine Protein Negative (Neg-Trace)
[2023-01-03 13:21] LABS: Amphetamine Screen Urine Not Detected (Not Detect); Barbiturates, Urine Not Detected (Not Detect); Benzodiazepines Screen Urine Not Detected (Not Detect); Cannabinoid Screen Urine Not Detected (Not Detect); Cocaine Screen Urine Not Detected (Not Detect); Fentanyl, urine Not Detected (Not Detect); Opiate Screen Urine Not Detected (Not Detect); Phencyclidine Screen Urine Not Detected (Not Detect)
[2023-01-03 14:27] VITALS: BP 169/104; PULSE 65; RESP 18; TEMP 36.1; O2SAT 98
--- NOTE | 2023-01-03 14:33 | PHA.MEDREC ---
Pharmacy Consult ? Medication Reconciliation Pharmacy has completed the medication reconciliation. Spoke to patient to confirm meds.
--- NOTE | 2023-01-03 15:17 | PM.IMHP ---
History of Present Illness Date of Service: 01/03/23 Chief Complaint: Confusion A 67 years old lady with PMH of osteoporosis, allergies and xSmoker who started Bupropion 2 weeks ago for quitting presenting with sudded onset confusion today. report she was doing well this morning. she went out with a frnd to take care of the lawn when she started looking for her cigarettes and the frnd noticed she is confused. she was unable to remember the incident but reported since starting the medication difficulties sleeping and mildly being emotional. denies any fever, chills., headache, double vision, nausea, vomitng, change in bowel habit or urinary symptoms. denies any focal weakness or numbness. In ED she was noted to have elevated BP readings. CT and CTA head and neck negative for any acute findings. Will be admitted for further eval. Review of Systems Review of Systems: No fever, chills or weakness No chest pain, palpitation No shortness of breath or coughing No abdominal pain, nausea or vomiting No urinary symptoms No any rash or wounds PMFSH Medical History HLD (hyperlipidemia) Osteoporosis Social History Alcohol intake: current Alcohol intake frequency: holidays/special occasions only Smoked in Last 30 Days: Yes Use of substances other than those prescribed or required for medical reasons: No Advance Directives: No Meds Allergies Allergy/AdvReac Type Severity Reaction Status Date / Time No Known Allergies Allergy Verified 01/03/23 11:49 Active Medications: Current Medications Acetaminophen (Acetaminophen 325 Mg Tablet) 650 mg PO Q6H PRN PRN Reason: Pain, Mild (Pain Scale 1-3) Enoxaparin Sodium (Enoxaparin Sodium 40 Mg/0.4 Ml Syringe) 40 mg SUBCUT Q24H KELLIE Hydroxyzine HCl (Hydroxyzine Hcl 25 Mg Tablet) 25 mg PO Q6H PRN PRN Reason: Anxiety Lorazepam (Lorazepam 0.5 Mg Tablet) 0.25 mg PO ONCE ONE Stop: 01/03/23 15:14 Ondansetron HCl (Ondansetron Hcl 4 Mg/2 Ml Vial) 4 mg IVPUSH Q8H PRN PRN Reason: Nausea and Vomiting Pharmacy Consult (Consult Rx Perform Med Rec) 1 each MISCELLANE ONCE PRN PRN Reason: Consult order Sodium Chloride (0.9 % Sodium Chloride Flush 3 Ml Syringe) 3 ml IVFLUSH QSHIFT [facility] Zolpidem Tartrate (Zolpidem Tartrate 5 Mg Tablet) 5 mg PO BEDTIME [facility] Home Medications Medication Instructions Recorded Confirmed Last Taken Type albuterol sulfate 90 mcg/actuation 2 puff inhalation Q4H PRN 01/03/23 01/03/23 Unknown History aerosol inhaler Shortness Of Breath Or Wheezing alendronate 70 mg tablet 70 mg PO TU@0900 01/03/23 01/03/23 12/30/22 History biotin 5 mg tablet 5 mg PO DAILY 01/03/23 01/03/23 01/03/23 09:00 History bupropion HCl 150 mg tablet,12 hr 150 mg PO BID 01/03/23 01/03/23 01/03/23 09:00 History sustained-release calcium citrate 450 mg PO BID 01/03/23 01/03/23 01/03/23 09:00 History levocetirizine 5 mg tablet 5 mg PO DAILY 01/03/23 01/03/23 01/03/23 09:00 History multivit with 1 tab PO DAILY 01/03/23 01/03/23 01/03/23 09:00 History zddhitsx-hcbi-YC-lutein 8 mg iron-400 mcg-300 mcg tablet (Centrum Silver Women) simvastatin 20 mg tablet 20 mg PO DAILY 01/03/23 01/03/23 01/03/23 09:00 History vitamin D3 125 mcg (5,000 1 cap PO MOWEFR@0900 01/03/23 01/03/23 01/02/23 History unit)-vitamin K2 90 mcg capsule Physical Exam Vital Signs and Narrative: Vital Signs: Last Vital Signs Temp 97 F 01/03/23 14:27 Pulse 65 01/03/23 14:27 Resp 18 01/03/23 14:27 BP 169/104 H 01/03/23 14:27 Pulse Ox 98 01/03/23 14:27 O2 Del Method Room Air 01/03/23 14:27 BMI result Body Mass Index 20.5 Const: Other: Constitutional : Awake, interactive, not in distress Neck : Normal inspection, Supple Cardiovascular : RRR, no JVP, no lower extremity edema Respiratory : good bilateral air entry, no crackles, wheezes or rhonchi Gastrointestinal: soft, lax, Normal bowel sounds, Non tender Skin : Warm, Dry Neurological : Alert & oriented x3, No focal deficit , CN 2-12 within normal Results Labs 01/03/23 12:15 01/03/23 12:15 Labs: Laboratory Results - last 24 hr 01/03/23 01/03/23 01/03/23 12:15 12:15 12:15 MCV 91.7 MCH 31.0 MCHC 33.8 RDW 13.2 Plt Count 327 MPV 9.4 Immature Gran % (Auto) 0.2 Neut % (Auto) 57.4 Lymph % (Auto) 30.3 [place] % (Auto) 6.8 Eos % (Auto) 4.3 H Baso % (Auto) 1.0 Lymph # (Auto) 3.3 [place] # (Auto) 0.8 Eos # (Auto) 0.5 H Baso # (Auto) 0.1 Abs Immat Gran (auto) 0.02 Absolute Neuts (auto) 6.3 Absolute Nucleated RBC 0.000 Nucleated RBC % (auto) 0.0 PT Whole Blood PT INR Whole Blood INR APTT Anion Gap 16 Estim Creat Clear Calc 69.0 Estimated GFR > 60 POC Glucose Random Glucose 90 Calcium 10.0 Magnesium 2.2 Total Bilirubin 0.7 AST 33 H ALT 25 Alkaline Phosphatase 69 Ammonia 23 Troponin I High Sens Total Protein 7.6 Albumin 4.6 Urine Color Urine Appearance Urine pH Ur Specific [place] Urine Protein Urine Glucose (UA) Urine Ketones Urine Blood Urine Nitrite Ur Leukocyte Esterase Urine Opiates Screen Urine Fentanyl Screen Ur Barbiturates Screen Ur Phencyclidine Scrn Ur Amphetamines Screen U Benzodiazepines Scrn Urine Cocaine Screen U Marijuana (THC) Screen Ethyl Alcohol COVID-19 ([facility]) COVID-19 Clin Com 01/03/23 01/03/23 01/03/23 12:15 12:15 12:15 MCV MCH MCHC RDW Plt Count MPV Immature Gran % (Auto) Neut % (Auto) Lymph % (Auto) [place] % (Auto) Eos % (Auto) Baso % (Auto) Lymph # (Auto) [place] # (Auto) Eos # (Auto) Baso # (Auto) Abs Immat Gran (auto) Absolute Neuts (auto) Absolute Nucleated RBC Nucleated RBC % (auto) PT 10.3 Whole Blood PT INR 0.9 Whole Blood INR APTT 34.1 Anion Gap Estim Creat Clear Calc Estimated GFR POC Glucose Random Glucose Calcium Magnesium Total Bilirubin AST ALT Alkaline Phosphatase Ammonia Troponin I High Sens 4.9 Total Protein Albumin Urine Color Urine Appearance Urine pH Ur Specific [place] Urine Protein Urine Glucose (UA) Urine Ketones Urine Blood Urine Nitrite Ur Leukocyte Esterase Urine Opiates Screen Urine Fentanyl Screen Ur Barbiturates Screen Ur Phencyclidine Scrn Ur Amphetamines Screen U Benzodiazepines Scrn Urine Cocaine Screen U Marijuana (THC) Screen Ethyl Alcohol < 10 COVID-19 ([facility]) COVID-19 Clin Com 01/03/23 01/03/23 01/03/23 12:22 12:22 12:42 MCV MCH MCHC RDW Plt Count MPV Immature Gran % (Auto) Neut % (Auto) Lymph % (Auto) [place] % (Auto) Eos % (Auto) Baso % (Auto) Lymph # (Auto) [place] # (Auto) Eos # (Auto) Baso # (Auto) Abs Immat Gran (auto) Absolute Neuts (auto) Absolute Nucleated RBC Nucleated RBC % (auto) PT Whole Blood PT 12.5 INR Whole Blood INR 1.0 APTT Anion Gap Estim Creat Clear Calc Estimated GFR POC Glucose 97 Random Glucose Calcium Magnesium Total Bilirubin AST ALT Alkaline Phosphatase Ammonia Troponin I High Sens Total Protein Albumin Urine Color Urine Appearance Urine pH Ur Specific [place] Urine Protein Urine Glucose (UA) Urine Ketones Urine Blood Urine Nitrite Ur Leukocyte Esterase Urine Opiates Screen Urine Fentanyl Screen Ur Barbiturates Screen Ur Phencyclidine Scrn Ur Amphetamines Screen U Benzodiazepines Scrn Urine Cocaine Screen U Marijuana (THC) Screen Ethyl Alcohol COVID-19 ([facility]) Negative COVID-19 Clin Com See Note 01/03/23 01/03/23 12:58 12:58 MCV MCH MCHC RDW Plt Count MPV Immature Gran % (Auto) Neut % (Auto) Lymph % (Auto) [place] % (Auto) Eos % (Auto) Baso % (Auto) Lymph # (Auto) [place] # (Auto) Eos # (Auto) Baso # (Auto) Abs Immat Gran (auto) Absolute Neuts (auto) Absolute Nucleated RBC Nucleated RBC % (auto) PT Whole Blood PT INR Whole Blood INR APTT Anion Gap Estim Creat Clear Calc Estimated GFR POC Glucose Random Glucose Calcium Magnesium Total Bilirubin AST ALT Alkaline Phosphatase Ammonia Troponin I High Sens Total Protein Albumin Urine Color Yellow Urine Appearance Clear Urine pH 6.5 Ur Specific [place] 1.020 Urine Protein Negative Urine Glucose (UA) Negative Urine Ketones Negative Urine Blood Negative Urine Nitrite Negative Ur Leukocyte Esterase Negative Urine Opiates Screen Not Detected Urine Fentanyl Screen Not Detected Ur Barbiturates Screen Not Detected Ur Phencyclidine Scrn Not Detected Ur Amphetamines Screen Not Detected U Benzodiazepines Scrn Not Detected Urine Cocaine Screen Not Detected U Marijuana (THC) Screen Not Detected Ethyl Alcohol COVID-19 ([facility]) COVID-19 Clin Com Imaging Radiologist's Impressions: Impressions Head CT 01/03/23 12:17 IMPRESSION: No CT evidence of intracranial space-occupying mass, bleed or infarct. Normal CT scan does not rule out the possibility of hyperacute infarct in the first 12 hours. If patient symptoms persist may consider correlation with MRI, which is more sensitive for early acute infarct. This critical result was discussed with Joellen UGALDE at 12 by telephone at 01/03/2023 12:27 PM and it was ascertained that the content and urgency of the report was understood at the time of direct communication. Chest X-Ray 01/03/23 12:34 IMPRESSION: Normal chest x-ray. 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 Otherwise unremarkable examination in that there is no stenosis of the cervical carotid or vertebral arteries. No intracranial large vessel occlusion. No evidence of acute territorial infarct or hemorrhage. No abnormal intracranial mass or enhancement. This critical result was discussed with Joellen Lazar at 12:45 PM on 01/03/2023 and it was ascertained that the content and urgency of the report was understood at the time of direct communication. Assessment and Plan (1) Acute confusion: Status: Acute Plan A 67 years old lady with PMH of osteoporosis, allergies and xSmoker who started Bupropion 2 weeks ago for quitting presenting with sudden onset confusion today. acute confustion Likely 2/2 Bupropion vs seizure ? CT, CTA head and neck negative for any acute findings DC Buropion monitor for any recurrent episodes neurology consult Atarax prn for anxiety Elevated BP seems associated to current event, could be S\E from Bupropion monitor BP and hold on any meds for now HLD continue statin DVT PPx Lovenox Time Spent With Patient Time: Total time managing care of this patient today ____ minutes. Quality Stroke Does the patient have a stroke diagnosis?: No VTE Prior VTE?: No VTE Risk Level:: Medical - moderate - high VTE Device Contraindication: Treatment Not Indicated VTE Drug Contraindication: N/A - Med Ordered
[2023-01-03] MEDS: LORazepam 0.5 MG TABLET 0.25 MG PO (15:28)
[2023-01-03] MEDS: 0.9 % Sodium Chloride Flush 3 ML SYRINGE IVFLUSH ×2 (15:32→20:30)
[2023-01-03 15:35] VITALS: BP 149/89; PULSE 63; RESP 21; TEMP 36.8; O2SAT 97
--- NOTE | 2023-01-03 15:47 | PC.NURSE ---
pt alert and oriented x4. Pt better able to recall place/time/situation than previously. medicated with ativan for anxiety
[2023-01-03 15:49] LABS: Troponin-I High Sensitivity 61.7 ng/L (<3.5-17.0)
[2023-01-03 17:15] VITALS: BP 134/78; PULSE 72; RESP 17; TEMP 36.8; O2SAT 98
[2023-01-03 17:18] VITALS: BMI 19.6
[2023-01-03 19:26] LABS: Troponin-I High Sensitivity 157.5 ng/L (<3.5-17.0)
[2023-01-03 20:00] VITALS: BP 111/67; PULSE 78; PULSE 89; RESP 18; TEMP 36.7; O2SAT 98
[2023-01-03 23:16] LABS: Troponin-I High Sensitivity 146.7 ng/L (<3.5-17.0)
[2023-01-04] VITALS: BP 100/63; PULSE 60; RESP 18; TEMP 36.8; O2SAT 97
--- NOTE | 2023-01-04 | ECG_ITS ---
Test Reason : F U elevated Trop I Blood Pressure : / mmHG Vent. Rate : 058 BPM Atrial Rate : 058 BPM P-R Int : 170 ms QRS Dur : 102 ms QT Int : 442 ms P-R-T Axes : 085 -09 059 degrees QTc Int : 433 ms Sinus bradycardia Otherwise normal ECG When compared with ECG of 03-JAN-2023 12:41, Non-specific change in ST segment in Anterior leads Nonspecific T wave abnormality no longer evident in Inferior leads Nonspecific T wave abnormality no longer evident in Anterior leads Referred By: Lynne Smith Electronically Signed By:
[2023-01-04 03:11] VITALS: BP 147/63; PULSE 60; RESP 16; TEMP 36.5; O2SAT 98
[2023-01-04 06:33] LABS: Anion Gap 10 (12-20); Blood Urea Nitrogen 20 mg/dL (9-16); Calcium 9.5 mg/dL (8.4-10.2); Carbon Dioxide 27 mmol/L (22-29); Chloride 107 mmol/L (96-108); Creatinine Clr Calc Pharmacy 56.4; Estimated Glomerular Filt Rate > 60; Glucose Random 88 mg/dL (60-115); Potassium 4.2 mmol/L (3.3-5.1); Sodium 140 mmol/L (135-145)
--- NOTE | 2023-01-04 07:07 | PC.NURSE ---
Critical lab value for troponin reading 157.5. Received results at at 19:21. MD notified, repeat troponin order was placed and the results were 146.7 at 23:16 and MD notified. Patient is alert and oriented x4, denies any chest pain. MD did not place any further orders.
[2023-01-04] MEDS: Multivitamin TABLET 1 TAB PO (07:34)
[2023-01-04] MEDS: 0.9 % Sodium Chloride Flush 3 ML SYRINGE IVFLUSH (07:34)
[2023-01-04] MEDS: Atorvastatin Calcium 10 MG TABLET PO (07:34)
[2023-01-04 07:44] VITALS: BP 132/76; PULSE 49; RESP 20; TEMP 36.8; O2SAT 97
--- NOTE | 2023-01-04 09:40 | MHC.CM.PN ---
CM ATTEMPTED TO SEE PT HOWEVER PT OFF UNIT FOR PROCEDURE, CM TO REVISIT.
--- NOTE | 2023-01-04 10:32 | MHC.CM.PN ---
Addendum entered by Jie Lackey RN 01/04/23 13:17: MK 01/04/23 DELIVERED TO BEDSIDE AND PLACED IN CHART. Original Note: EMR REVIEWED, PT ADMITTED W/ACUTE CONFUSION, CM MET W/PT WHO IS A&OX4, DTR AND FRIEND AT BEDSIDE, PT REPORTS SHE LIVES W/HER WHO TRAVELS FREQUENTLY FOR WORK, WAS VISING FRIENDS/FAMILY, DTR REPORTS FAMILY/FRIENDS WILL TAKE TURNS STAYING W/PT UPON D/C UNTIL SHE CAN GET AN APPT W/HER PCP AND WILL DRIVE HER BACK TO [place]. PT VERIFIES PCP IS [facility] IN [place], COVID VACC X4 AND HAS BEEN EDUCATED ON HCP'S HOWEVER REPORTS SHE WILL COMPLETE ONCE SHE RETURNS TO [place]. ANTIC D/C HOME SELF CARE W/FAMILY FOR TRANSPORT
--- NOTE | 2023-01-04 11:37 | PM.CNCAR ---
History of Present Illness History of Present Illness Date of Service: 01/04/23 Requesting physician: Lynne Smith Chief complaint: Confusion, elevated BP, positive trop Narrative: 67-year-old female who is here for confusion and concern for seizure. She has been seen by Neurology and it is felt that she had seizures secondary to bupropion. At the same time when she presented with elevated blood pressures and mild elevation of high sensitive troponin level of 67, 157 and 146. Her ECG is normal. She has no chest discomfort shortness of breath. She said she was working in the [employer] where she just became confused and was not answering questions appropriately. With these symptoms she was brought in. She has no recollection of these events. She never had seizures before. She does not have any history of high blood pressure. The daughter added that she has been quite anxious and she stopped smoking in the last couple of weeks as she was advised not to smoke while using bupropion. She also drinking 1-2 glasses of wine per week which she has stopped. She is not a heavy drinker. No other symptoms. [facility] Past Medical History Medical History HLD (hyperlipidemia) Osteoporosis Social History Social History Household Members: Spouse and Family Housing: House Alcohol intake: current Alcohol intake frequency: holidays/special occasions only Patient Tobacco Use Status: Former Tobacco user Tobacco use type: Cigarette e-Cigarette/Vaping Use: Former Use Second Hand Smoke Exposure: No service: No Current occupational status: retired [employer] Allergies Allergy/AdvReac Type Severity Reaction Status Date / Time No Known Allergies Allergy Verified 01/03/23 11:49 Active Medications: Current Medications Acetaminophen (Acetaminophen 325 Mg Tablet) 650 mg PO Q6H PRN PRN Reason: Pain, Mild (Pain Scale 1-3) Albuterol Sulfate (Albuterol Sulfate 90 Mcg 8 Gm Inhaler) 2 puff INHALE Q4H PRN PRN Reason: Shortness Of Breath Or Wheezing Atorvastatin Calcium (Atorvastatin Calcium 10 Mg Tablet) 10 mg PO DAILY [facility] Last Admin: 01/04/23 07:34 Dose: 10 mg Calcium Carbonate (Calcium Carbonate 500 Mg Tablet) 500 mg PO BID [facility] Last Admin: 01/04/23 07:34 Dose: 500 mg Enoxaparin Sodium (Enoxaparin Sodium 40 Mg/0.4 Ml Syringe) 40 mg SUBCUT Q24H [facility] Last Admin: 01/03/23 15:47 Dose: Not Given Hydroxyzine HCl (Hydroxyzine Hcl 25 Mg Tablet) 25 mg PO Q6H PRN PRN Reason: Anxiety Multivitamins/Vitamin C (Multivitamin Tablet) 1 tab PO DAILY [facility] Last Admin: 01/04/23 07:34 Dose: 1 tab Ondansetron HCl (Ondansetron Hcl 4 Mg/2 Ml Vial) 4 mg IVPUSH Q8H PRN PRN Reason: Nausea and Vomiting Pharmacy Consult (Consult Rx Perform Med Rec) 1 each MISCELLANE ONCE PRN PRN Reason: Consult order Sodium Chloride (0.9 % Sodium Chloride Flush 3 Ml Syringe) 3 ml IVFLUSH QSHIFT [facility] Last Admin: 01/04/23 07:34 Dose: 3 ml Zolpidem Tartrate (Zolpidem Tartrate 5 Mg Tablet) 5 mg PO BEDTIME [facility] Last Admin: 01/03/23 20:31 Dose: Not Given Home Medications Medication Instructions Recorded Confirmed Last Taken Type albuterol sulfate 90 mcg/actuation 2 puff inhalation Q4H PRN 01/03/23 01/03/23 Unknown History aerosol inhaler Shortness Of Breath Or Wheezing alendronate 70 mg tablet 70 mg PO TU@0900 01/03/23 01/03/23 12/30/22 History biotin 5 mg tablet 5 mg PO DAILY 01/03/23 01/03/23 01/03/23 09:00 History bupropion HCl 150 mg tablet,12 hr 150 mg PO BID 01/03/23 01/03/23 01/03/23 09:00 History sustained-release calcium citrate 450 mg PO BID 01/03/23 01/03/23 01/03/23 09:00 History levocetirizine 5 mg tablet 5 mg PO DAILY 01/03/23 01/03/23 01/03/23 09:00 History multivit with 1 tab PO DAILY 01/03/23 01/03/23 01/03/23 09:00 History lxseggjl-[id number]-PF-lutein 8 mg iron-400 mcg-300 mcg tablet (Centrum Silver Women) simvastatin 20 mg tablet 20 mg PO DAILY 01/03/23 01/03/23 01/03/23 09:00 History vitamin D3 125 mcg (5,000 1 cap PO MOWEFR@0900 01/03/23 01/03/23 01/02/23 History unit)-vitamin K2 90 mcg capsule Physical Exam Vital Signs: Vital Signs: Last Vital Signs Temp 98.3 F 01/04/23 07:44 Pulse 49 L 01/04/23 07:44 Resp 20 01/04/23 07:44 BP 132/76 01/04/23 07:44 Pulse Ox 97 01/04/23 07:44 O2 Del Method Room Air 01/04/23 07:44 BMI result Body Mass Index 19.6 GENERAL APPEARANCE: in no acute distress, pleasant. NECK: no carotid bruit, no jugular venous distention. SKIN: no suspicious lesions, warm and dry. HEART: no murmurs, regular rate and rhythm. LUNGS: clear to auscultation bilaterally. ABDOMEN: soft, nontender. EXTREMITIES: no edema. PERIPHERAL PULSES: equal. NEUROLOGIC: No gross deficits, AAO X 3 Objective Labs and Meds 01/03/23 12:15 01/04/23 05:47 Lab results: Laboratory Results - last 24 hr 01/03/23 01/03/23 01/03/23 12:15 12:15 12:15 WBC 11.0 H RBC 5.09 Hgb 15.8 Hct 46.7 MCV 91.7 MCH 31.0 MCHC 33.8 RDW 13.2 Plt Count 327 MPV 9.4 Immature Gran % (Auto) 0.2 Neut % (Auto) 57.4 Lymph % (Auto) 30.3 Fisher % (Auto) 6.8 Eos % (Auto) 4.3 H Baso % (Auto) 1.0 Lymph # (Auto) 3.3 Fisher # (Auto) 0.8 Eos # (Auto) 0.5 H Baso # (Auto) 0.1 Abs Immat Gran (auto) 0.02 Absolute Neuts (auto) 6.3 Absolute Nucleated RBC 0.000 Nucleated RBC % (auto) 0.0 PT Whole Blood PT INR Whole Blood INR APTT Sodium 141 Potassium 5.0 Chloride 108 Carbon Dioxide 22 Anion Gap 16 BUN 15 Creatinine 0.71 Estim Creat Clear Calc 69.0 Estimated GFR > 60 POC Glucose Random Glucose 90 Calcium 10.0 Magnesium 2.2 Total Bilirubin 0.7 AST 33 H ALT 25 Alkaline Phosphatase 69 Ammonia 23 Troponin I High Sens Total Protein 7.6 Albumin 4.6 Urine Color Urine Appearance Urine pH Ur Specific [place] Urine Protein Urine Glucose (UA) Urine Ketones Urine Blood Urine Nitrite Ur Leukocyte Esterase Urine Opiates Screen Urine Fentanyl Screen Ur Barbiturates Screen Ur Phencyclidine Scrn Ur Amphetamines Screen U Benzodiazepines Scrn Urine Cocaine Screen U Marijuana (THC) Screen Ethyl Alcohol COVID-19 ([facility]) COVID-19 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 Com 01/03/23 01/03/23 01/03/23 12:15 12:15 12:15 WBC RBC Hgb Hct MCV MCH MCHC RDW Plt Count MPV Immature Gran % (Auto) Neut % (Auto) Lymph % (Auto) Fisher % (Auto) Eos % (Auto) Baso % (Auto) Lymph # (Auto) Fisher # (Auto) Eos # (Auto) Baso # (Auto) Abs Immat Gran (auto) Absolute Neuts (auto) Absolute Nucleated RBC Nucleated RBC % (auto) PT 10.3 Whole Blood PT INR 0.9 Whole Blood INR APTT 34.1 Sodium Potassium Chloride Carbon Dioxide Anion Gap BUN Creatinine Estim Creat Clear Calc Estimated GFR POC Glucose Random Glucose Calcium Magnesium Total Bilirubin AST ALT Alkaline Phosphatase Ammonia Troponin I High Sens 4.9 Total Protein Albumin Urine Color Urine Appearance Urine pH Ur Specific [place] Urine Protein Urine Glucose (UA) Urine Ketones Urine Blood Urine Nitrite Ur Leukocyte Esterase Urine Opiates Screen Urine Fentanyl Screen Ur Barbiturates Screen Ur Phencyclidine Scrn Ur Amphetamines Screen U Benzodiazepines Scrn Urine Cocaine Screen U Marijuana (THC) Screen Ethyl Alcohol < 10 COVID-19 ([facility]) COVID-19 [employer] 01/03/23 01/03/23 01/03/23 12:22 12:22 12:42 WBC RBC Hgb Hct MCV MCH MCHC RDW Plt Count MPV Immature Gran % (Auto) Neut % (Auto) Lymph % (Auto) Fisher % (Auto) Eos % (Auto) Baso % (Auto) Lymph # (Auto) Fisher # (Auto) Eos # (Auto) Baso # (Auto) Abs Immat Gran (auto) Absolute Neuts (auto) Absolute Nucleated RBC Nucleated RBC % (auto) PT Whole Blood PT 12.5 INR Whole Blood INR 1.0 APTT Sodium Potassium Chloride Carbon Dioxide Anion Gap BUN Creatinine Estim Creat Clear Calc Estimated GFR POC Glucose 97 Random Glucose Calcium Magnesium Total Bilirubin AST ALT Alkaline Phosphatase Ammonia Troponin I High Sens Total Protein Albumin Urine Color Urine Appearance Urine pH Ur Specific [place] Urine Protein Urine Glucose (UA) Urine Ketones Urine Blood Urine Nitrite Ur Leukocyte Esterase Urine Opiates Screen Urine Fentanyl Screen Ur Barbiturates Screen Ur Phencyclidine Scrn Ur Amphetamines Screen U Benzodiazepines Scrn Urine Cocaine Screen U Marijuana (THC) Screen Ethyl Alcohol COVID-19 ([facility]) Negative COVID-19 Clin Com See Note 01/03/23 01/03/23 01/03/23 12:58 12:58 15:10 WBC RBC Hgb Hct MCV MCH MCHC RDW Plt Count MPV Immature Gran % (Auto) Neut % (Auto) Lymph % (Auto) Fisher % (Auto) Eos % (Auto) Baso % (Auto) Lymph # (Auto) Fisher # (Auto) Eos # (Auto) Baso # (Auto) Abs Immat Gran (auto) Absolute Neuts (auto) Absolute Nucleated RBC Nucleated RBC % (auto) PT Whole Blood PT INR Whole Blood INR APTT Sodium Potassium Chloride Carbon Dioxide Anion Gap BUN Creatinine Estim Creat Clear Calc Estimated GFR POC Glucose Random Glucose Calcium Magnesium Total Bilirubin AST ALT Alkaline Phosphatase Ammonia Troponin I High Sens 61.7 H* D Total Protein Albumin Urine Color Yellow Urine Appearance Clear Urine pH 6.5 Ur Specific [place] 1.020 Urine Protein Negative Urine Glucose (UA) Negative Urine Ketones Negative Urine Blood Negative Urine Nitrite Negative Ur Leukocyte Esterase Negative Urine Opiates Screen Not Detected Urine Fentanyl Screen Not Detected Ur Barbiturates Screen Not Detected Ur Phencyclidine Scrn Not Detected Ur Amphetamines Screen Not Detected U Benzodiazepines Scrn Not Detected Urine Cocaine Screen Not Detected U Marijuana (THC) Screen Not Detected Ethyl Alcohol COVID-19 ([facility]) COVID-19 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 [employer] Com 01/03/23 01/03/23 01/04/23 18:24 22:08 05:47 WBC RBC Hgb Hct MCV MCH MCHC RDW Plt Count MPV Immature Gran % (Auto) Neut % (Auto) Lymph % (Auto) Fisher % (Auto) Eos % (Auto) Baso % (Auto) Lymph # (Auto) Fisher # (Auto) Eos # (Auto) Baso # (Auto) Abs Immat Gran (auto) Absolute Neuts (auto) Absolute Nucleated RBC Nucleated RBC % (auto) PT Whole Blood PT INR Whole Blood INR APTT Sodium 140 Potassium 4.2 Chloride 107 Carbon Dioxide 27 Anion Gap 10 L BUN 20 H Creatinine 0.83 Estim Creat Clear Calc 56.4 Estimated GFR > 60 POC Glucose Random Glucose 88 Calcium 9.5 Magnesium Total Bilirubin AST ALT Alkaline Phosphatase Ammonia Troponin I High Sens 157.5 H* D 146.7 H* Total Protein Albumin Urine Color Urine Appearance Urine pH Ur Specific [place] Urine Protein Urine Glucose (UA) Urine Ketones Urine Blood Urine Nitrite Ur Leukocyte Esterase Urine Opiates Screen Urine Fentanyl Screen Ur Barbiturates Screen Ur Phencyclidine Scrn Ur Amphetamines Screen U Benzodiazepines Scrn Urine Cocaine Screen U Marijuana (THC) Screen Ethyl Alcohol COVID-19 ([facility]) COVID-19 Clin Com Imaging Radiologist's impression: Impressions Head CT 01/03/23 12:17 IMPRESSION: No CT evidence of intracranial space-occupying mass, bleed or infarct. Normal CT scan does not rule out the possibility of hyperacute infarct in the first 12 hours. If patient symptoms persist may consider correlation with MRI, which is more sensitive for early acute infarct. This critical result was discussed with Joellen UGALDE at 12 by telephone at 01/03/2023 12:27 PM and it was ascertained that the content and urgency of the report was understood at the time of direct communication. Chest X-Ray 01/03/23 12:34 IMPRESSION: Normal chest x-ray. 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 Otherwise unremarkable examination in that there is no stenosis of the cervical carotid or vertebral arteries. No intracranial large vessel occlusion. No evidence of acute territorial infarct or hemorrhage. No abnormal intracranial mass or enhancement. This critical result was discussed with Joellen Lazar at 12:45 PM on 01/03/2023 and it was ascertained that the content and urgency of the report was understood at the time of direct communication. Assessment and Plan (1) Acute confusion: Status: Acute (2) Essential hypertension: Status: Acute (3) Elevated troponin: Status: Acute Plan Pleasant 67-year-old female who is presenting for confusion secondary to seizure due to bupropion. She is being followed by Neurology. She also was noticed to have elevated blood pressures on admission which interestingly have improved with treatment for anxiety. With elevated blood pressure she had mildly elevated troponin levels. She has no dynamic EKG changes. No chest discomfort shortness of breath. I think blood pressure is a cause for mildly elevated troponin levels and this is a type 2 injury. She will need further workup including echocardiography. If she stays still tomorrow we can do tomorrow otherwise she can get it as outpatient. Till we have further workup performed I recommend giving her baby aspirin. Overall clinically stable. Thank you for allowing me to participate in the care of your patient. Please feel free to contact me if you have any questions. Time Spent With Patient Time: Total time managing care of this patient today ____ minutes. Procedures Date of Service Date of Service: 01/04/23
--- NOTE | 2023-01-04 12:16 | P.DS_ITS ---
DS: Providers Provider Date of Service: 01/04/23 Date of admission: 01/03/23 15:08 Primary care physician: Unknown Physician Consults: 01/03/23 15:08 Consult to Neurology Routine Consulting Provider: [facility] Reason for consultation: confusion, foggy thinking, no focal weakness. Med vs seizure? 01/04/23 07:59 Consult to Cardiology Routine Consulting Provider: [facility] Reason for consultation: Elevated Trop, episode of confusion, high BP for kind eval. DS: Diagnosis Discharge Diagnosis (1) Acute confusion: Status: Acute (2) Essential hypertension: Status: Acute (3) Elevated troponin: Status: Acute DS: Summary Hospital Course Hospital Course: Admission note HPI A 67 years old lady with PMH of osteoporosis, allergies and xSmoker who started Bupropion 2 weeks ago for quitting presenting with sudded onset confusion today. report she was doing well this morning. she went out with a frnd to take care of the lawn when she started looking for her cigarettes and the frnd noticed she is confused. she was unable to remember the incident but reported since starting the medication difficulties sleeping and mildly being emotional. denies any fever, chills., headache, double vision, nausea, vomitng, change in bowel habit or urinary symptoms. denies any focal weakness or numbness. In ED she was noted to have elevated BP readings. CT and CTA head and neck negative for any acute findings. Will be admitted for further eval. Hospital course The patient was observed in the hospital for incident of acute confusion. believed to be related to Bupropion or possible seizure as CT, CTA head and neck negative for any acute findings. Bupropion discontinued with improvement of mentation to baseline. no recurrent episodes during hospital stay. discussed with neurologist who recommended outpatient follow up and to discontinue Bupropion on discharge. reported Elevated BP at time of presentation which could also be S\E from Bupropion. BP normal for the rest of hospital stay. to monitor for 1 week at home and report readings to PCP. Noted to have Elevated Trop I with No chest pain, No EKG changes. Trop Plateau and trended down. seen by gut carrier who recommended outpatient follow up and baby aspirin with a plan to follow up as outpatient for further ischemic work up. Follow with dr Lacy as outpatient for ECHO and ischemic work up Follow with Dr Castillo from neurology for evaluation of confusion Discontinue Bupropione Start baby Aspirin Use Ativan as needed for anxiety Monitor blood pressure for the next week and report readings to PCP Time Spent with Patient Time attestation: Total time managing care of this patient today ____ minutes. Discharge coordination time: Less than 30 minutes Quality: Safe Use of Opioids Does Pt have an Active Cancer Diagnosis on the Problem List?: No Quality: Stroke Does the patient have a stroke diagnosis?: No Physical Exam Vital Signs: Vital Signs: Last Vital Signs Temp 98.3 F 01/04/23 07:44 Pulse 49 L 01/04/23 07:44 Resp 20 01/04/23 07:44 BP 132/76 01/04/23 07:44 Pulse Ox 97 01/04/23 07:44 O2 Del Method Room Air 01/04/23 07:44 BMI result Body Mass Index 19.6 Const: Other: Constitutional : Awake, interactive, not in distress Neck : Normal inspection, Supple Cardiovascular : RRR, no JVP, no lower extremity edema Respiratory : good bilateral air entry, no crackles, wheezes or rhonchi Gastrointestinal: soft, lax, Normal bowel sounds, Non tender Skin : Warm, Dry Neurological : Alert & oriented x3, No focal deficit , CN 2-12 within normal DS: Data Data Completed and Pending Labs on day of discharge: Laboratory Results - last 24 hr 01/03/23 01/03/23 01/03/23 12:15 12:15 12:15 WBC 11.0 H RBC 5.09 Hgb 15.8 Hct 46.7 MCV 91.7 MCH 31.0 MCHC 33.8 RDW 13.2 Plt Count 327 MPV 9.4 Immature Gran % (Auto) 0.2 Neut % (Auto) 57.4 Lymph % (Auto) 30.3 Band[place] % (Auto) 6.8 Eos % (Auto) 4.3 H Baso % (Auto) 1.0 Lymph # (Auto) 3.3 Band[place] # (Auto) 0.8 Eos # (Auto) 0.5 H Baso # (Auto) 0.1 Abs Immat Gran (auto) 0.02 Absolute Neuts (auto) 6.3 Absolute Nucleated RBC 0.000 Nucleated RBC % (auto) 0.0 PT Whole Blood PT INR Whole Blood INR APTT Sodium 141 Potassium 5.0 Chloride 108 Carbon Dioxide 22 Anion Gap 16 BUN 15 Creatinine 0.71 Estim Creat Clear Calc 69.0 Estimated GFR > 60 POC Glucose Random Glucose 90 Calcium 10.0 Magnesium 2.2 Total Bilirubin 0.7 AST 33 H ALT 25 Alkaline Phosphatase 69 Ammonia 23 Troponin I High Sens Total Protein 7.6 Albumin 4.6 Urine Color Urine Appearance Urine pH Ur Specific [place] Urine Protein Urine Glucose (UA) Urine Ketones Urine Blood Urine Nitrite Ur Leukocyte Esterase Urine Opiates Screen Urine Fentanyl Screen Ur Barbiturates Screen Ur Phencyclidine Scrn Ur Amphetamines Screen U Benzodiazepines Scrn Urine Cocaine Screen U Marijuana (THC) Screen Ethyl Alcohol COVID-19 ([facility]) COVID-19 Clin Com 01/03/23 01/03/23 01/03/23 12:15 12:15 12:15 WBC RBC Hgb Hct MCV MCH MCHC RDW Plt Count MPV Immature Gran % (Auto) Neut % (Auto) Lymph % (Auto) [place] % (Auto) Eos % (Auto) Baso % (Auto) Lymph # (Auto) [place] # (Auto) Eos # (Auto) Baso # (Auto) Abs Immat Gran (auto) Absolute Neuts (auto) Absolute Nucleated RBC Nucleated RBC % (auto) PT 10.3 Whole Blood PT INR 0.9 Whole Blood INR APTT 34.1 Sodium Potassium Chloride Carbon Dioxide Anion Gap BUN Creatinine Estim Creat Clear Calc Estimated GFR POC Glucose Random Glucose Calcium Magnesium Total Bilirubin AST ALT Alkaline Phosphatase Ammonia Troponin I High Sens 4.9 Total Protein Albumin Urine Color Urine Appearance Urine pH Ur Specific [place] Urine Protein Urine Glucose (UA) Urine Ketones Urine Blood Urine Nitrite Ur Leukocyte Esterase Urine Opiates Screen Urine Fentanyl Screen Ur Barbiturates Screen Ur Phencyclidine Scrn Ur Amphetamines Screen U Benzodiazepines Scrn Urine Cocaine Screen U Marijuana (THC) Screen Ethyl Alcohol < 10 COVID-19 ([facility]) COVID-19 [employer] Com 01/03/23 01/03/23 01/03/23 12:22 12:22 12:42 WBC RBC Hgb Hct MCV MCH MCHC RDW Plt Count MPV Immature Gran % (Auto) Neut % (Auto) Lymph % (Auto) [place] % (Auto) Eos % (Auto) Baso % (Auto) Lymph # (Auto) [place] # (Auto) Eos # (Auto) Baso # (Auto) Abs Immat Gran (auto) Absolute Neuts (auto) Absolute Nucleated RBC Nucleated RBC % (auto) PT Whole Blood PT 12.5 INR Whole Blood INR 1.0 APTT Sodium Potassium Chloride Carbon Dioxide Anion Gap BUN Creatinine Estim Creat Clear Calc Estimated GFR POC Glucose 97 Random Glucose Calcium Magnesium Total Bilirubin AST ALT Alkaline Phosphatase Ammonia Troponin I High Sens Total Protein Albumin Urine Color Urine Appearance Urine pH Ur Specific [place] Urine Protein Urine Glucose (UA) Urine Ketones Urine Blood Urine Nitrite Ur Leukocyte Esterase Urine Opiates Screen Urine Fentanyl Screen Ur Barbiturates Screen Ur Phencyclidine Scrn Ur Amphetamines Screen U Benzodiazepines Scrn Urine Cocaine Screen U Marijuana (THC) Screen Ethyl Alcohol COVID-19 ([facility]) Negative COVID-19 [employer] Com See Note 01/03/23 01/03/23 01/03/23 12:58 12:58 15:10 WBC RBC Hgb Hct MCV MCH MCHC RDW Plt Count MPV Immature Gran % (Auto) Neut % (Auto) Lymph % (Auto) [place] % (Auto) Eos % (Auto) Baso % (Auto) Lymph # (Auto) [place] # (Auto) Eos # (Auto) Baso # (Auto) Abs Immat Gran (auto) Absolute Neuts (auto) Absolute Nucleated RBC Nucleated RBC % (auto) PT Whole Blood PT INR Whole Blood INR APTT Sodium Potassium Chloride Carbon Dioxide Anion Gap BUN Creatinine Estim Creat Clear Calc Estimated GFR POC Glucose Random Glucose Calcium Magnesium Total Bilirubin AST ALT Alkaline Phosphatase Ammonia Troponin I High Sens 61.7 H* D Total Protein Albumin Urine Color Yellow Urine Appearance Clear Urine pH 6.5 Ur Specific [place] 1.020 Urine Protein Negative Urine Glucose (UA) Negative Urine Ketones Negative Urine Blood Negative Urine Nitrite Negative Ur Leukocyte Esterase Negative Urine Opiates Screen Not Detected Urine Fentanyl Screen Not Detected Ur Barbiturates Screen Not Detected Ur Phencyclidine Scrn Not Detected Ur Amphetamines Screen Not Detected U Benzodiazepines Scrn Not Detected Urine Cocaine Screen Not Detected U Marijuana (THC) Screen Not Detected Ethyl Alcohol COVID-19 ([facility]) COVID-[employer] 01/03/23 01/03/23 01/04/23 18:24 22:08 05:47 WBC RBC Hgb Hct MCV MCH MCHC RDW Plt Count MPV Immature Gran % (Auto) Neut % (Auto) Lymph % (Auto) [place] % (Auto) Eos % (Auto) Baso % (Auto) Lymph # (Auto) [place] # (Auto) Eos # (Auto) Baso # (Auto) Abs Immat Gran (auto) Absolute Neuts (auto) Absolute Nucleated RBC Nucleated RBC % (auto) PT Whole Blood PT INR Whole Blood INR APTT Sodium 140 Potassium 4.2 Chloride 107 Carbon Dioxide 27 Anion Gap 10 L BUN 20 H Creatinine 0.83 Estim Creat Clear Calc 56.4 Estimated GFR > 60 POC Glucose Random Glucose 88 Calcium 9.5 Magnesium Total Bilirubin AST ALT Alkaline Phosphatase Ammonia Troponin I High Sens 157.5 H* D 146.7 H* Total Protein Albumin Urine Color Urine Appearance Urine pH Ur Specific [place] Urine Protein Urine Glucose (UA) Urine Ketones Urine Blood Urine Nitrite Ur Leukocyte Esterase Urine Opiates Screen Urine Fentanyl Screen Ur Barbiturates Screen Ur Phencyclidine Scrn Ur Amphetamines Screen U Benzodiazepines Scrn Urine Cocaine Screen U Marijuana (THC) Screen Ethyl Alcohol COVID-19 ([facility]) COVID-[address] scan - head: Radiologist's impression: ITS Impressions Head CT 01/03/23 12:17 IMPRESSION: No CT evidence of intracranial space-occupying mass, bleed or infarct. Normal CT scan does not rule out the possibility of hyperacute infarct in the first 12 hours. If patient symptoms persist may consider correlation with MRI, which is more sensitive for early acute infarct. This critical result was discussed with Joellen UGALDE at 12 by telephone at 01/03/2023 12:27 PM and it was ascertained that the content and urgency of the report was understood at the time of direct communication. Chest X-Ray 01/03/23 12:34 IMPRESSION: Normal chest x-ray. 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 Otherwise unremarkable examination in that there is no stenosis of the cervical carotid or vertebral arteries. No intracranial large vessel occlusion. No evidence of acute territorial infarct or hemorrhage. No abnormal intracranial mass or enhancement. This critical result was discussed with Joellen Lazar at 12:45 PM on 01/03/2023 and it was ascertained that the content and urgency of the report was understood at the time of direct communication. Discharge Plan Discharge Patient Disposition: Home, Self-Care Discharge Diagnosis: Confusion Referrals: Physician,Unknown J [Primary Care Provider] - 1 Week Discharge Medications: New lorazepam 0.5 mg tablet 0.25 mg PO BID PRN (Reason: anxiety) Qty: 10 0RF aspirin 81 mg capsule 81 mg PO DAILY Qty: 30 0RF Continued alendronate 70 mg tablet 70 mg PO TU@0900 simvastatin 20 mg tablet 20 mg PO DAILY albuterol sulfate 90 mcg/actuation HFA aerosol inhaler 2 puff inhalation Q4H PRN (Reason: Shortness Of Breath Or Wheezing) calcium citrate 250 mg calcium Tablet 450 mg PO BID biotin 5 mg Tablet 5 mg PO DAILY levocetirizine 5 mg tablet 5 mg PO DAILY Centrum Silver Women 8 mg iron-400 mcg-300 mcg Tablet 1 tab PO DAILY vitamin D3-vitamin K2 125-90 mcg Capsule 1 cap PO MOWEFR@0900 Discontinued bupropion HCl 150 mg tablet sustained-release 12 hr 150 mg PO BID Discharge Orders: Discharge Order (Routine); Ordered 01/04/23 Ordered By: Lynne Smith Diet: Advance to usual diet Activity on Discharge: As tolerated Stand Alone Forms: Patient Portal Discharge page Care Plan Goals: Read below Health Concerns: Read below Plan of Treatment: Read below Assessment: You were admitted to the hospital for evaluation of confusion episode. believed to be a result of Bupropion with possible seizure. discussed with neurology who recommended to discontinue the medication and follow up as outpatient. Noticed to have elevated cardiac enzymes. believe to be related to high blood pressure readings on admission. evaluated by gut carrier who wants you to follow as outpatient. Follow with dr Lacy as outpatient for ECHO and ischemic work up Follow with Dr Castillo from neurology for evaluation of confusion Discontinue Bupropione Use Ativan as needed for anxiety
--- NOTE | 2023-01-04 13:17 | MHC.CM.PN ---
PT MEDICALLY CLEARED FOR D/C HOME NO SERVICES W/FAMILY FOR TRANSPORT.
== END 2023-01-04 13:42 | disposition home or self-care (01) ==
LOC: HO.ED 13:27 → HO.EDOVER 15:31 → HO.IMC 16:01
PROVIDERS: Internal Medicine; Physician Assistant; Physician Assistant Medical; Admitting Provider Student in an Organized Health Care Education/Training Program; Emergency Provider Emergency Medicine; Visit Provider Student in an Organized Health Care Education/Training Program
DX: R41.0 Disorientation, unspecified (principal); I10 Essential (primary) hypertension; R77.8 Other specified abnormalities of plasma proteins; F41.9 Anxiety disorder, unspecified; R29.810 Facial weakness; M81.0 Age-related osteoporosis without current pathological fracture; E78.5 Hyperlipidemia, unspecified; Z87.891 Personal history of nicotine dependence; Z79.899 Other long term (current) drug therapy
CPT/HCPCS: 36415; 70450; 70496; 70498; 71046; 80048; 80053; 80307; 81003; 82077; 82140; 82947; 83735; 84484; 85025; 85610; 85730; 87635; 93005; 99222; 99284; Q9967

== ENCOUNTER → 2023-01-13 07:38 | Outpatient (REF) | payer OTHER, SELFPAY ==
--- NOTE | 2023-01-13 07:42 | CA_ITS ---
Transthoracic Echocardiogram Patient (Last, First, Middle): Sonia English, Gender: Female Date of : 1955 Age: 67 Procedure Date: 01/13/2023 Procedure Type: Transthoracic Echocardiogram Location: OP Height: 160.02 cm Weight: 54.43 kg BSA: 1.56 m2 Heart Rate: bpm BP: 156 / 84 mmHg Sandblaster Supervisor: JAMSHID Referring MD: KATHY GUTIERREZ MD Symptoms: R77.8 - Other specified abnormalities of plasma proteins Study Quality: Adequate ECG Rhythm: Sinus Conclusions: - The left ventricular systolic function is normal. The calculated ejection fraction is 65% by biplane method. - No obvious valvular pathology seen on this study. Findings Left Ventricle Normal left ventricular cavity size. There is normal left ventricular wall thickness. The left ventricular systolic function is normal. The calculated ejection fraction is 65% by biplane method. There is no evidence of regional wall motion abnormalities. Diastolic function is normal for age. LV peak GLS -24.2%. Right Ventricle Normal right ventricular cavity size and systolic function. Atria Both atria are normal in size. Aortic Valve There is a normal trileaflet aortic valve. There is no aortic valve stenosis. There is no aortic valve regurgitation. Mitral Valve The mitral valve appears normal. There is trace mitral valve regurgitation. There is no mitral valve stenosis. Pulmonic Valve The pulmonic valve is likely normal. Tricuspid Valve Normal tricuspid valve structure. There is trace tricuspid valve regurgitation. There is no evidence of pulmonary hypertension. Great Vessels The asc aorta is normal in size. Venous The inferior vena cava is normal in size and collapses greater than 50% with inspiration. Pericardium/Pleural There is no evidence of pericardial effusion. Prior Study Comparison No prior study available for comparison. Recommendations, Care & Conclusions No obvious valvular pathology seen on this study. Measurements 2D Linear Measurements IVSd: 0.92 0.6-0.9/0.6-1.0 cm LVIDd: 4.31 3.9-5.3/4.2-5.9 cm LVIDd Index: 2.76 2.4-3.2/2.2-3.1 cm/m2 LVIDs: 2.78 2.0-3.6 cm LVPWd: 0.95 0.7-1.1 cm LA Diam: 3.10 2.7-3.8/3.0-4.0 cm LAIDs Index: 1.99 1.5-2.3 cm/m2 LV Mass: 161.61 67-162/88-224 g LV Mass Index: 103.60 43-95/49-115 g/m2 LVOT Diam: 1.80 3.0+(-)1.3 cm 2D Systolic Function EF 4C: 61.40 >55% EF 2C: 69.10 >55% EF BiP: 64.80 >55% Mitral Valve MV Pk E: 0.96 MV PK A: 0.65 MV Decel Time: 192.00 E/A: 1.50 E'Lateral: 10.00 E'Medial: 7.51 E/E' Med: 12.80 E/E' Lat: 9.60 PHT: 56.00 MVA PHT: 3.93 Decel Walton: 5.01 Aortic Valve AoV Pk Christiano: 1.52 AoV Mn Christiano: 0.92 AoV VTI: 0.41 AoV Pk Grad: 9.00 Aov Mn Grad: 4.00 BHARATHI Cont.VTI: 1.76 LVOT LVOT Pk Christiano: 1.14 LVOT Mn Christiano: 0.67 LVOT VTI: 0.28 LVOT Pk Grad: 5.00 LVOT Mn Grad: 2.00 LVOT Diam: 1.80 LVOT Area: 2.54 Diastolic Function MV Pk E: 0.96 MV Pk A: 0.65 E/A: 1.50 E'Medial: 7.51 E/E' Med: 12.80 E' Laterial: 10.00 E/E' Lat: 9.60 Right Ventricle TAPSE (mm): 28.40 TVS' Christiano: 10.90 Tricuspid Valve TR Pk Christiano: 2.18 TR Pk Grad: 19.00 RA Press: 3.00 RVSP: 22.00 Great Vessels Aorta Sinus of Valsalva: 2.87 2.0-3.[address] [place]: 2.16 1.7-3.4 cm Ao Asc: 2.90 2.1-3.4 cm Updated in Other Vendor System with Status of Final Sonny Peoples MD electronically signed on 01/15/2023 10:15:49 AM with status of Final
== END ==
LOC: HO.CARD 07:38
PROVIDERS: Visit Provider Internal Medicine Cardiovascular Disease
DX: R77.8 Other specified abnormalities of plasma proteins (principal)
CPT/HCPCS: 93306; 93356

== ENCOUNTER → 2023-01-22 14:15 | Outpatient (BNVA) | payer OTHER, SELFPAY | PROVIDERS: Visit Provider Internal Medicine Cardiovascular Disease | DX: Z13.89 Encounter for screening for other disorder (principal) ==

== ENCOUNTER → 2024-01-18 13:18 | Outpatient (BNVA) | payer MEDICARE, SELFPAY | PROVIDERS: Visit Provider Nurse Practitioner Family | DX: R00.1 Bradycardia, unspecified (principal); I10 Essential (primary) hypertension; E78.5 Hyperlipidemia, unspecified | CPT/HCPCS: 93005; 99212 ==

== ENCOUNTER 2024-01-18 13:19 | Outpatient (AMB) | payer MEDICARE, OTHER, SELFPAY ==
[2024-01-18 13:46] VITALS: BP 134/80; PULSE 41; BMI 23.3
--- NOTE | 2024-01-18 13:46 | A.OFFVIS_ITS ---
Vital Signs 01/18/24 13:46 Height 5 ft 5 in Weight 140 lb 3.424 oz BMI 23.3 BP 134/80 Blood Pressure Location Lt brachial Position Sitting Pulse 41 L Pulse Source Monitor Intake Visit Reasons: 1 yr f/up- km pt Director Of User Experience Required: No Allergies bupropion Allergy (Severe, Verified 01/18/24 13:49) Seizure Penicillins Adverse Reaction (Intermediate, Verified 01/18/24 13:49) Seizure Medication List - Last Reconciled 01/18/24 by Myla Zamarripa, BROOKE-C albuterol sulfate 90 mcg/actuation 2 puffs inhalation Q4H PRN alendronate 70 mg PO TU@0900 aspirin 81 mg PO DAILY biotin 5 mg PO DAILY calcium citrate 450 mg PO BID levetiracetam ER 500 mg PO BEDTIME levocetirizine 5 mg PO DAILY lorazepam 0.25 mg (1/2 x 0.5 mg) PO BID PRN [id number] K-lut 8 mg iron-400 mcg-50 mcg (Centrum Silver Women) 1 tab PO DAILY simvastatin 20 mg PO DAILY vitamin D3-vitamin K2 125-90 mcg 1 cap PO MOWEFR@0900 HPI HPI 1 yr f/up- km pt: Details: Sonia is a 68-year-old female past medical history of hypertension, hyper lipidemia who has a history of having a seizure last year with elevated troponins, normal echocardiogram who now presents for follow-up. Today she reports she has not had any recurrent seizure activity in the last year. She believes it was the bupropion she was taking at that time that contributed to the event. She then stopped bupropion and was able to quit smoking and alcohol use completely without medication supplements last year. No chest discomfort at rest or with activity. No shortness of breath, palpitations, lightheadedness, presyncope, syncope, PND, orthopnea or edema. Reports good activity tolerance. [facility] Medical History (Updated 01/18/24 @ 16:17 by Myla Zamarripa, BROOKE-C) Essential hypertension HLD (hyperlipidemia) Osteoporosis Surgical History History of knee surgery H/O wrist surgery Family History Mother Heart disease Father Brain aneurysm Brother HTN (hypertension) Brother Colon cancer Son Kidney disease Daughter MRSA (methicillin resistant staph aureus) culture positive Social History Household Members: Spouse and Family Housing: House Alcohol intake: former Year quit: 2022 Patient Tobacco Use Status: Former Tobacco user Quit Date: 11/2022 Years Smoked: 50 +/- e-Cigarette/Vaping Use: Former Use Second Hand Smoke Exposure: No Substance Use Type: Marijuana service: No Current occupational status: retired Review of Systems Const All systems reviewed & are unremarkable except as noted in HPI and below ENT Denies dizziness Card Denies chest pain, Denies chest pain at rest, Denies chest pain with activity, Denies rapid heart rate, Denies pedal edema, Denies edema, Denies leg edema, Denies lightheadedness, Denies palpitations, Denies dyspnea, Denies dyspnea on exertion and Denies orthopnea Resp Denies cough, Denies dyspnea and Denies dyspnea on exertion GI Denies hematochezia and Denies change in stool character Musc Denies abnormal gait, Denies limited range of motion, Denies muscle cramps, Denies muscle weakness, Denies numbness, Denies radiating pain into limb, Denies stiffness and Denies tingling Neuro Denies abnormal gait, Denies dizziness, Denies numbness and Denies tingling Endo Denies palpitations Physical Exam Vital Signs: Last Vital Signs Pulse 41 L 01/18/24 13:46 BP 134/80 01/18/24 13:46 BMI result Body Mass Index 23.3 Const General: cooperative, healthy appearing, comfortable and no acute distress Orientation/consciousness: patient oriented x3 Neck Neck: Yes normal visual inspection and Yes no JVD Resp Effort & Inspection: normal respiratory effort Auscultation: clear to auscultation bilaterally, no rales, no rhonchi and no wheezes Cardio Jugular venous distension: no JVD Rate: bradycardic Rhythm: regular rhythm Heart sounds: S1 normal heart sound present, S2 normal heart sound present, no murmurs and no rubs Neuro General: patient oriented x3 Extrem General: Yes normal to inspection and No no pedal edema Psych Appearance: grossly normal Mental Status: mental status grossly normal Speech and movement: Normal speech and movement present Office Procedures EKG Details: Today, read by me, marked sinus bradycardia, rate 41, QTC 371 milliseconds [id number], Complete Assessment & Plan Assessment & Plan (1) Sinus bradycardia: Code(s): R00.1 - Bradycardia, unspecified Category: Medical Plan: Asymptomatic bradycardia. EKG done on 01/04/2023 showed sinus bradycardia, heart rate 55. EKG done today showing marked sinus bradycardia, heart rate 41. She denies any lightheadedness, presyncope, syncope, falls. No decreased activity tolerance. Using a sat monitor I had her ambulate in our hallways, resting heart rate 48, aubree to 61 with walking. She is not on any rate slowing medications. Will check a Holter monitor to assess for significant bradycardia, pauses. Will check an exercise stress test to evaluate for chronotropic competence. Plan to have these done on 02/04/2024 as she has a CTA of the brain scheduled that day and she travels nearly 1.5 hours to get to our office. She resides in [place]. Plan to call her with test results. Cardiology follow-up 6 months, sooner if tests warrant it. Emergency care if ever needed for concerning symptoms. (2) Essential hypertension: Code(s): I10 - Essential (primary) hypertension Category: Medical Plan: History of hypertension. Well controlled at present time. Not on any antihypertensive presently. Reviewed low-salt diet. Orders: Orders ECG 3 day holter monitor 02/04/24 R00.1 - Bradycardia, unspecified CA stress test 02/04/24 R00.1 - Bradycardia, unspecified
== END 2024-01-18 14:34 | disposition home or self-care (01) ==
PROVIDERS: Visit Provider Nurse Practitioner Family
DX: R00.1 Bradycardia, unspecified (principal); I10 Essential (primary) hypertension
CPT/HCPCS: 93010; 99214

== ENCOUNTER → 2024-02-04 07:40 | Outpatient (REF) | payer MEDICARE, SELFPAY ==
--- NOTE | ~2024-02-04 | CT_ITS ---
CT ANGIOGRAM BRAIN, HEAD CLINICAL INFORMATION: Cerebral aneurysm. COMPARISON: CTA head and neck 01/03/2023. TECHNIQUE: Test bolus sequences followed by intravenous administration 100 mL of Omnipaque 350 intravenous contrast. Helical imaging was performed in the axial plane from the skull base to the vertex. Delayed postcontrast imaging of the head was also performed. The data was processed at the registered radiologic technologist workstation for generation of MIP sequences. Three-dimensional volume rendered reformatted images were also generated at an offline 3-D workstation. The degree of stenosis determined by NASCET criteria. This CT examination was performed using dose optimization techniques as appropriate, variously including the following: *Automated exposure control *Adjustment of mA and/or kV according to patient size (this includes techniques or standardized protocols for targeted exams where dose is matched to indication/reason for exam; i.e. extremities or head) *Use of iterative reconstruction technique FINDINGS: There is no pathologic enhancement intracranially. There is no intracranial hemorrhage, hydrocephalus, extra-axial surface collection, midline shift, or other herniation pattern. Calderon to white matter differentiation is diffusely maintained without evidence of an evolved acute territorial infarct. The basilar cisterns are preserved. No significant soft tissue abnormality. No acute osseous abnormality. The paranasal sinuses and the mastoid air cells are well aerated. A small 1.6 mm aneurysm associated with the right anterior communicating artery is stable. A 2.7 mm aneurysm projecting laterally from the left MCA bifurcation is also stable. No new aneurysms. No significant arterial stenoses in no acute arterial occlusions intracranially. 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 No new aneurysms.
--- NOTE | 2024-02-04 07:45 | HM_ITS ---
Conclusion: 1. Patient was monitored for total period of 3 days and 22 hours 2. Baseline was normal sinus rhythm with average heart of 59 beats per minute 3. No significant pauses noted but frequent sinus bradycardia noted with 61.5% of time heart rate below 60 beats per minute 4. Occasional PACs noted with 3 SVT events, fastest at 158 beats per minute and longest at 12 beats 5. Patient marked the counter 1 time without associated symptoms correlating with normal sinus rhythm MTDD
--- NOTE | 2024-02-04 07:45 | CA_ITS ---
Acquisition Time: 2024-02-04 08:06:32 Total Exercise Time: 00:05:55 Test Indications: BRADYCARDIA Medications: SEE H Protocol: GAL Max HR: 129 BPM 84% of Pred: 153 BPM Max BP: 162/092 mmHG Max Work Load: 7.0 METS Exercise stress test exercise 5 min 55 sec of Gal protocol achieving 84% MPHR, without anginal symptoms, without arrhythmias, with hypertensive response to exercise, with appropriate heart rate response with quick recovery to baseline, without EKG changes. Test reviewed with Dr. Lacy. Referred By: Myla Zamarripa Overread By: Deidre Wang
[2024-02-04] MEDS: iohexoL 350 MG/ML 100 ML INFUS..BTL 75 ML IV (10:57)
== END ==
LOC: HO.CARD 07:40
PROVIDERS: Visit Provider Nurse Practitioner Family
DX: R00.1 Bradycardia, unspecified (principal); I67.1 Cerebral aneurysm, nonruptured
CPT/HCPCS: 70496; 93017; 93242

== ENCOUNTER → 2024-02-04 07:45 | Outpatient (BNV) | payer MEDICARE, OTHER, SELFPAY | PROVIDERS: Visit Provider Nurse Practitioner | DX: R00.1 Bradycardia, unspecified (principal) | CPT/HCPCS: 93016; 93018; 93244 ==

== ENCOUNTER 2024-08-05 10:28 | Outpatient (AMB) | payer MEDICARE, SELFPAY ==
--- NOTE | 2024-08-05 11:15 | A.OFFVIS_ITS ---
Vital Signs 08/05/24 11:16 Height 5 ft 5 in Weight 134 lb 14.766 oz BMI 22.4 BP 120/70 Blood Pressure Location Lt brachial Position Sitting Pulse 47 L Pulse Source Pulse Oximeter Intake Visit Reasons: 6 mth f/up Intake Note: 6 mth f/up Area Counselor Required: No Accompanied by: Self / Same As Patient Allergies bupropion Allergy (Severe, Verified 01/18/24 13:49) Seizure Penicillins Adverse Reaction (Intermediate, Verified 01/18/24 13:49) Seizure Medication List - Last Reconciled 08/05/24 by Aquilino Lacy MD albuterol sulfate 90 mcg/actuation 2 puffs inhalation Q4H PRN alendronate 70 mg PO TU@0900 aspirin 81 mg PO DAILY biotin 5 mg PO DAILY calcium citrate 450 mg PO BID levetiracetam ER 500 mg PO BEDTIME levocetirizine 5 mg PO DAILY lorazepam 0.25 mg (1/2 x 0.5 mg) PO BID PRN tssigoja-ikj-czru-FA-vit K-lut 8 mg iron-400 mcg-50 mcg (Centrum Silver Women) 1 tab PO DAILY sertraline 25 mg PO DAILY simvastatin 20 mg PO DAILY vitamin D3-vitamin K2 125-90 mcg 1 cap PO MOWEFR@0900 HPI Comments Details: 69-year-old female who is here for f/u. She had seizure and HTN. She has mildly elevated troponin levels. This was a type 2 injury. Echo was normal. She has no CP or SOB. Clinically stable on f/u. She has been started on Keppra for seizures. 08/05/2024: She is here for follow-up. Denying any chest pain or shortness of breath. She had bradycardia and underwent exercise stress test where she was able to achieve 85% of maximum predicted heart rate. She has no dizziness or lightheadedness. Clinically she is completely asymp tomatic. [facility] Medical History (Updated 01/18/24 @ 16:17 by JULIA Birch) Essential hypertension HLD (hyperlipidemia) Osteoporosis Surgical History History of knee surgery H/O wrist surgery Family History Mother Heart disease Father Brain aneurysm Brother HTN (hypertension) Brother Colon cancer Son Kidney disease Daughter MRSA (methicillin resistant staph aureus) culture positive Social History Household Members: Spouse and Family Housing: House Alcohol intake: former Year quit: 2022 Patient Tobacco Use Status: Former Tobacco user Years Smoked: 50 +/- e-Cigarette/Vaping Use: Former Use Second Hand Smoke Exposure: No Substance Use Type: Marijuana service: No Current occupational status: retired Review of Systems Const Denies chills, Denies fatigue, Denies fever(s), Denies frequent falls, Denies weakness, Denies weight gain and Denies weight loss ENT Denies dizziness Card Denies chest pain, Denies leg edema, Denies lightheadedness, Denies palpitations, Denies dyspnea and Denies dyspnea on exertion Resp Denies cough, Denies dyspnea and Denies dyspnea on exertion GI Denies hematochezia Musc Denies abnormal gait, Denies muscle weakness, Denies numbness, Denies radiating pain into limb and Denies tingling Neuro Denies abnormal gait, Denies dizziness, Denies frequent falls, Denies numbness, Denies tingling and Denies weakness Endo Denies fatigue and Denies palpitations Physical Exam Vital Signs: Last Vital Signs Pulse 47 L 08/05/24 11:16 BP 120/70 08/05/24 11:16 BMI result Body Mass Index 22.4 GENERAL APPEARANCE: in no acute distress, pleasant. NECK: no carotid bruit, no jugular venous distention. SKIN: no suspicious lesions, warm and dry. HEART: no murmurs, regular rate and rhythm. Bradycardic. LUNGS: clear to auscultation bilaterally. ABDOMEN: soft, nontender. EXTREMITIES: no edema. PERIPHERAL PULSES: equal. NEUROLOGIC: No gross deficits, AAO X 3 Assessment & Plan Assessment & Plan (1) Essential hypertension: Code(s): I10 - Essential (primary) hypertension Category: Medical (2) Sinus bradycardia: Code(s): R00.1 - Bradycardia, unspecified Category: Medical Plan Pleasant 69 year female who is here for follow-up. 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 She has been doing well with Keppra at this stage. Blood pressure is normal. She has sinus bradycardia. She is not symptomatic from bradycardia at this point. She also had an exercise stress test where she had appropriate rise in heart rate with exercise. I have reassured her currently that she does not need pacemaker. She will see us back in 1 year. Thank you for allowing me to participate in the care of your patient. Please feel free to contact me if you have any questions. Coding Level of Care Code Est Pt Level 3 (92706) Diagnoses Essential hypertension I10 Sinus bradycardia R00.1
[2024-08-05 11:16] VITALS: BP 120/70; PULSE 47; BMI 22.4
== END 2024-08-05 11:48 | disposition home or self-care (01) ==
PROVIDERS: Visit Provider Internal Medicine Cardiovascular Disease
DX: I10 Essential (primary) hypertension (principal); R00.1 Bradycardia, unspecified
CPT/HCPCS: 99213

== ENCOUNTER → 2024-08-05 10:28 | Outpatient (BNVA) | payer MEDICARE, SELFPAY | PROVIDERS: Visit Provider Internal Medicine Cardiovascular Disease | DX: R00.1 Bradycardia, unspecified (principal); I10 Essential (primary) hypertension | CPT/HCPCS: 99212 ==

== ENCOUNTER 2025-05-10 08:38 | Outpatient (AMB) | payer MEDICARE, SELFPAY ==
--- OUTSIDE RECORDS SUMMARY | 2025-05-10 08:50 | XMS_ITS | Clinical Summary ---
Author Organization [facility] Address [address] [place] [address] Phone Care Team Providers Care Jumpbasting Facing Baster Name Role Phone AlineShelbi Abigail COX Primary Care Provider Allergies Active Allergy Reactions Criticality Noted Date Comments Morphine 08/07/2023 Medications simvastatin (ZOCOR) 20 MG tablet Take 1 tablet by mouth every morning. 3 Active levETIRAcetam (KEPPRA XR) 500 mg 24 hr tablet Take 1 tablet by mouth every morning. 3 Active alendronate (FOSAMAX) 70 MG tablet PLEASE SEE ATTACHED FOR DETAILED DIRECTIONS 3 Active levocetirizine (XYZAL) 5 MG tablet Take 1 tablet by mouth every morning. 3 Active Active Problems No known active problems Social History Tobacco Use Types Packs/Day Years Used Date Smoking Tobacco: Former Cigarettes Smokeless Tobacco: Never Tobacco Cessation:Counseling Given: Not Answered Education Answer Date Recorded Are you interested in more education? Not on jose e 08/07/2023 Are you concerned about learning? Not on file 08/07/2023 No 08/07/2023 No 08/07/2023 Digital Access Answer Date Recorded No 08/07/2023 No 08/07/2023 Reliable internet access at home? Not on file 08/07/2023 Device with a working camera? Not on file Comments Unknown Sex and Gender Information Value Date Recorded Sex Assigned at Female 08/07/2023 6:04 PM EST Legal Sex Female 6:02 PM EST Gender Identity Female 08/07/2023 6:04 PM EST Sexual Orientation Straight 08/07/2023 6: 04 PM EST Last Filed Vital Signs Vital Sign Reading Time Taken Comments Blood Pressure 166/87 08/07/2023 6:21 PM EST Pulse 61 08/07/2023 6:21 PM EST Temperature 36.7 C (98 F) 08/07/2023 6:21 PM EST Respiratory Rate 18 08/07/2023 6:21 PM EST Oxygen Saturation 99% 08/07/2023 6:21 PM EST Inhaled Oxygen Concentration - - Weight - - Height - - Body Mass Index - - Plan of Treatment Health Maintenance Due Date Last Done Comments Adult Td,Tdap Booster 1956 LIPID PANEL 1956 DEPRESSION SCREENING 1968 SMOKING Hx and SMOKELESS TOBACCO SCREENING 1969 HEPATITIS C SCREENING 1974 MAMMOGRAM 1996 COLOGUARD 2001 COLONOSCOPY 2001 COLORECTAL CANCER SCREENING 2001 FIT TEST 2001 FOBT 2001 SIGMOIDOSCOPY 2001 VIRTUAL COLONOSCOPY 2001 PNEUMOCOCCAL VACCINES (50+ years) (1 of 1 - PCV) 2006 ZOSTER VACCINES (1 of 2) 2006 OSTEOPOROSIS SCREENING INITI AL (ONE-TIME) 2021 COVID-19 VACCINE (3 - 2023-2 5 season) 2024 07/18/2023, 02/22/2022 RSV VACCINE (1 - 1-dose 75+ series) 2031 HEPATITIS A VACCINES Aged Out No long er eligible based on patient's age to complete this topic HIB VACCINES Aged Out No longer eligi ble based on patient's age to complete this topic MENINGOCOCCAL VACCINES (ACWY) Aged Out No longer eligible based on patient's age to complete this topic MENINGOCOCCAL VACCINES (B) Aged Out N o longer eligible based on patient's age to complete this topic Medical Devices Not on file Insurance LIA PPO CIGNA PPO CIGNA PPO CIGNA PPO CIGNA PPO CIGNA PPO Care Teams Jumpbasting Facing Baster Relationship Specialty Start Date End Date Shelbi Mireles NP [address] [place] [address] PCP - General Nurse Practitioner 08/07/23 Additional Source Comments The information contained in this document represents components of the legal health record. It is not the complete legal health record.[facility]
--- OUTSIDE RECORDS SUMMARY | 2025-05-10 08:50 | XMS_ITS | Clinical Summary ---
[place] [address] Care Team Providers Care Scrub Tech Name Role Phone Unavailable Primary Care Provider Unavailabl e Social History Tobacco Use Types Packs/Day Years Used Date Smoking Tobacco: Never Assessed Comments Unknown Sex and Gender Information Value Date Recorded Sex Assigned at Not on file Legal Sex Female 3:43 PM EST Gender Identity Not on file Sexual Orientation Not on file Plan of Treatment Health Maintenance Due Date Last Done Comments CT Colonography 1956 Colonoscopy 1956 Colorectal Cancer Screening 1956 FIT DNA 1956 FIT 1956 Sigmoidoscopy (10 year) with FIT yearly 1956 Sigmoidoscopy 1956 Hepatitis C Screening 1974 Tetanus/Diphtheria/Pertussis Vaccines (1 - Tdap) 07/30 Breast Cancer Share Decision Needed 1996 Breast Cancer screening 1996 Pneumoccocal Vaccine: 50+ (1 of 1 - PCV) 2006 Zoster vaccine (1 of 2) 2006 Advance Directive 2011 Bone Density Scan 2021 Covid-19 Vaccine (1 - 2023- season) 2024 Influenza (Flu) vaccine (1 o f 1 - Influenza standard series) 05/29/2025
--- NOTE | 2025-05-10 09:13 | A.OFFVIS_ITS ---
Vital Signs 05/10/25 09:14 Height 5 ft 5 in Intake Visit Reasons: 1 yr CPS Allergies bupropion Allergy (Severe, Verified 05/10/25 09:20) Seizure Penicillins Adverse Reaction (Intermediate, Verified 05/10/25 09:20) Seizure Medication List - Last Reconciled 05/10/25 by Fabiola Pinzon CNP albuterol sulfate 90 mcg/actuation 2 puffs inhalation Q4H PRN alendronate 70 mg PO TU@0900 aspirin 81 mg PO DAILY biotin 5 mg PO DAILY calcium citrate 450 mg PO BID levetiracetam ER 500 mg PO BEDTIME levocetirizine 5 mg PO DAILY lorazepam 0.25 mg (1/2 x 0.5 mg) PO BID PRN njnbgwpm-oft-xdhc-FA-vit K-lut 8 mg iron-400 mcg-50 mcg (Centrum Silver Women) 1 tab PO DAILY sertraline 25 mg PO DAILY simvastatin 20 mg PO DAILY vitamin D3-vitamin K2 125-90 mcg 1 cap PO MOWEFR@0900 HPI Comments Details: 69-year-old woman who, in 2022, took Wellbutrin for smoking cessation and had an episode suggestive of complex partial seizure bringing her to emergency room where a head CT was performed, revealing couple of small aneurysms. Because of this finding, levetiracetam was continued. She was doing okay. No seizures. Mood was okay. Sleep was okay. No medication side effects. [facility] Medical History (Updated 05/10/25 @ 09:17 by Fabiola Pinzon CNP) Anxiety disorder Complex partial seizures Essential hypertension HLD (hyperlipidemia) Osteoporosis Surgical History History of knee surgery H/O wrist surgery Family History Mother Heart disease Father Brain aneurysm Brother HTN (hypertension) Brother Colon cancer Son Kidney disease Daughter MRSA (methicillin resistant staph aureus) culture positive Social History Household Members: Spouse and Family Housing: House Alcohol intake: former Year quit: 2022 Patient Tobacco Use Status: Former Tobacco user Years Smoked: 50 +/- e-Cigarette/Vaping Use: Former Use Second Hand Smoke Exposure: No Substance Use Type: Marijuana service: No Current occupational status: retired Review of Systems Const Denies chills, Denies daytime sleepiness, Denies difficulty sleeping, Denies fatigue, Denies fever(s), Denies frequent falls, Denies headache(s), Denies increased appetite, Denies poor appetite, Denies snoring, Denies weakness, Denies weight gain and Denies weight loss Eyes Denies loss of vision ENT Denies vertigo, Denies dizziness and Denies headache(s) Card Denies chest pain at rest, Denies chest pain with activity, Denies syncope, Denies leg edema and Denies palpitations Resp Denies snoring GI Denies constipation, Denies heartburn, Denies diarrhea and Denies nausea Denies urinary frequency, Denies urinary incontinence and Denies urinary urgency Musc Denies abnormal gait, Denies numbness and Denies tingling Skin/Breast Denies dry skin and Denies rash Neuro Denies abnormal gait, Denies vertigo, Denies dizziness, Denies syncope, Denies frequent falls, Denies headache(s), Denies lack of coordination, Denies loss of vision, Denies memory loss, Denies numbness, Denies restless legs, Denies seizure-like activity, Denies tingling, Denies paresthesias, Denies tremor(s) and Denies weakness Psych Denies anxiety, Denies depression, Denies auditory hallucinations, Denies memory loss, Denies visual hallucinations and Denies suicidal ideation Endo Denies fatigue and Denies palpitations Physical Exam Const Other: General Appearance:? normal, in no acute distress. Heart:? S1, S2 normal, no murmurs. Lungs:? clear anteriorly and posteriorly. Musculoskeletal:? normal. Extremities:? no edema. Psych:? alert, oriented, cognitive function intact, cooperative with exam. Neuro Other: Mental Status:?Normal attention, orientation, memory and affect.? Cranial Nerves:?Pupils are equal, round and reactive to light. External occular muscles are intact. Visual villarreal are full. Face is symmetrical. Facial sensations are normal. Tongue is midline. Palate elevates symmetrically. Shoulder shrugging is normal. Hearing to bedside conversation is normal. Sensory Exam:?....? Coordination:?No ataxia,?no titubation.? Gait Exam: Within normal limits. Extrapyramidal System:?No tremor, rigidity with normal facial expressions.? Pronator Drift:?Not present.? Involuntary Movements:?No tremors seen.? Speech:?Normal.? Results Reviewed Results Reviewed: [place] [facility] [place]: No change in aneurysms Routine EEG at [facility] in Dec 2022: R temp sharps CT brain WO [place] [facility] 2022: WNL CTA brain and neck at [facility] in Dec 2022: 1.6mm Acom, and L MCA bifurcation 2.7mm aneurysms, otherwise ok Assessment & Plan Assessment & Plan (1) Complex partial seizures: Code(s): G40.209 - Localization-related (focal) (partial) symptomatic epilepsy and epileptic syndromes with complex partial seizures, not intractable, without status epilepticus Category: Medical Plan: Continue levetiracetam ER Tablet Extended Release 24 hour 500mg 1 tablet daily. (2) Cerebral aneurysm: Code(s): I67.1 - Cerebral aneurysm, nonruptured Category: Medical Plan: Clinically stable, will reimage in 2025. (3) Anxiety disorder: Code(s): F41.9 - Anxiety disorder, unspecified Category: Medical Qualifiers: Anxiety disorder type: unspecified anxiety disorder Qualified Code(s): F41.9 - Anxiety disorder, unspecified Plan: Continue sertraline 25mg 1 tablet daily. Coding Level of Care Code Est Pt Level 4 (48958) Diagnoses Complex partial seizures G40.209 Cerebral aneurysm I67.1 Anxiety disorder, unspecified type F41.9 Anxiety disorder type: unspecified anxiety disorder
== END 2025-05-10 09:25 | disposition home or self-care (01) ==
LOC: HO.HSM 08:38
PROVIDERS: Visit Provider Registered Nurse
DX: G40.209 Localization-related (focal) (partial) symptomatic epilepsy and epileptic syndromes with complex partial seizures, not intractable, without status epilepticus (principal); I67.1 Cerebral aneurysm, nonruptured; F41.9 Anxiety disorder, unspecified
CPT/HCPCS: 99214

== ENCOUNTER → 2025-05-10 08:38 | Outpatient (BNVA) | payer MEDICARE, SELFPAY | PROVIDERS: Visit Provider Registered Nurse | DX: G40.209 Localization-related (focal) (partial) symptomatic epilepsy and epileptic syndromes with complex partial seizures, not intractable, without status epilepticus (principal); I67.1 Cerebral aneurysm, nonruptured; F41.9 Anxiety disorder, unspecified | CPT/HCPCS: 99212 ==

== ENCOUNTER 2025-08-21 08:38 | Outpatient (AMB) | payer MEDICARE, SELFPAY ==
--- NOTE | 2025-08-21 08:49 | MHC.OFFVIS ---
Vital Signs 08/21/25 08:50 Height 5 ft 5 in Weight 140 lb 3.424 oz BMI 23.3 BP 142/80 H Blood Pressure Location Lt brachial Position Sitting Pulse 45 L Pulse Source Monitor Intake Visit Reasons: r/s-6 mth f/up Asphalt Paving Foreman Required: No Allergies bupropion Allergy (Severe, Verified 08/21/25 08:52) Seizure Penicillins Adverse Reaction (Intermediate, Verified 08/21/25 08:52) Seizure Medication List - Last Reconciled 08/21/25 by Myla Zamarripa, BROOKE-C albuterol sulfate 90 mcg/actuation 2 puffs inhalation Q4H PRN alendronate 70 mg PO TU@0900 aspirin 81 mg PO DAILY biotin 5 mg PO DAILY calcium citrate 450 mg PO BID levetiracetam ER 500 mg PO BEDTIME 90 days levocetirizine 5 mg PO DAILY lorazepam 0.25 mg (1/2 x 0.5 mg) PO BID PRN ofhjohls-jxg-praw-FA-vit K-lut 8 mg iron-400 mcg-50 mcg (Centrum Silver Women) 1 tab PO DAILY sertraline 25 mg PO DAILY 90 days simvastatin 20 mg PO DAILY vitamin D3-vitamin K2 125-90 mcg 1 cap PO MOWEFR@0900 HPI HPI r/s-6 mth f/up: Details: Sonia is a 70-year-old female past medical history of hypertension, hyperlipidemia, elevated troponins after a seizure, sinus bradycardia, who presents for follow-up. Today she reports she has been doing well. She has not had any recurrent seizure activity in the last year or since the initial event. She believes it was the bupropion she was taking at that time that contributed to the seizure activity. She then stopped bupropion and was able to quit smoking and alcohol use completely without medication supplements 3 yrs ago. She denies any chest discomfort at rest or with activity. No shortness of breath, palpitations, lightheadedness, presyncope, syncope. She is active each day and has good tolerance and energy levels. [facility] Medical History Anxiety disorder Complex partial seizures Essential hypertension HLD (hyperlipidemia) Osteoporosis Surgical History History of knee surgery H/O wrist surgery Family History Mother Heart disease Father Brain aneurysm Brother HTN (hypertension) Brother Colon cancer Son Kidney disease Daughter MRSA (methicillin resistant staph aureus) culture positive Social History Household Members: Spouse and Family Housing: House Alcohol intake: former Year quit: 2022 Patient Tobacco Use Status: Former Tobacco user Years Smoked: 50 +/- e-Cigarette/Vaping Use: Former Use Second Hand Smoke Exposure: No Substance Use Type: Marijuana service: No Current occupational status: retired Review of Systems Const All systems reviewed & are unremarkable except as noted in HPI and below ENT Denies dizziness Card Denies chest pain, Denies chest pain at rest, Denies chest pain with activity, Denies rapid heart rate, Denies pedal edema, Denies edema, Denies leg edema, Denies lightheadedness, Denies palpitations, Denies dyspnea, Denies dyspnea on exertion and Denies orthopnea Resp Denies cough, Denies dyspnea and Denies dyspnea on exertion GI Denies hematochezia and Denies change in stool character Musc Denies abnormal gait, Denies limited range of motion, Denies muscle cramps, Denies muscle weakness, Denies numbness, Denies radiating pain into limb, Denies stiffness and Denies tingling Neuro Denies abnormal gait, Denies dizziness, Denies numbness and Denies tingling Endo Denies palpitations Physical Exam Vital Signs: BMI result Body Mass Index 23.3 Const General: cooperative, healthy appearing, comfortable and no acute distress Orientation/consciousness: patient oriented x3 Neck Neck: Yes normal visual inspection Resp Effort & Inspection: normal respiratory effort Auscultation: clear to auscultation bilaterally, no crackles, no rales, no rhonchi and no wheezes Cardio Jugular venous distension: no JVD Rate: regular rate Rhythm: regular rhythm Heart sounds: S1 normal heart sound present, S2 normal heart sound present, no gallops, no murmurs and no rubs Peripheral pulses: Peripheral pulses 2+ throughout Neuro General: patient oriented x3 Extrem General: Yes normal to inspection and No no pedal edema Psych Appearance: grossly normal Mental Status: mental status grossly normal Speech and movement: Normal speech and movement present Office Procedures EKG Details: Today, read by me, sinus bradycardia, rate 45, Qtc 380ms [id number], Complete Assessment & Plan Assessment & Plan (1) Sinus bradycardia: Code(s): R00.1 - Bradycardia, unspecified Category: Medical Plan: Asymptomatic sinus bradycardia. She is not on any rate slowing medications. Holter had been done 02/04/24 showing sinus rhythm, rate 59, frequent sinus bradycardia with 61.5 % of the time heart rate below 60. Three SVT events, longest 12 beats. Exercise stress test done 02/04/2024 showed good exercise tolerance, appropriate chronotropic response. EKG today showing sinus bradycardia, rate 45. Good activity tolerance, no lightheadedness or excess fatigue. Instructed to call if she starts having concerning symptoms. Cardiology follow-up 6 months, sooner if needed. (2) Essential hypertension: Code(s): I10 - Essential (primary) hypertension Category: Medical Plan: History of hypertension with BP goal less than 130/80. Mildly elevated today. Not on any antihypertensive presently. Reviewed low-salt diet and periodic home blood pressure checks. Plan I discussed with the patient that while the resting heart rate of 45 is low, it is not worrisome at this time because the patient is feeling well with good energy and no lightheadedness. I explained that her heart is keeping up with the patient's needs. We discussed that treatment for a symptomatic slow heart rate could include a pacemaker, but I clarified that one is not needed now. I recommended a follow-up in six months to monitor the situation, but advised the patient to return sooner for any new symptoms like increased fatigue, weakness, or lightheadedness, especially with activity. Patient Instructions: - Your heart rate is slow, but since you are feeling well, this is not a concern right now. - You do not need a pacemaker at this time. - Please return for a follow-up visit in 6 months. - Contact the office sooner if you start to feel very weak, tired, or lightheaded, especially when you are doing physical activities. - Continue to stay active and do what you feel up to doing. -Periodic home BP checks, calling if running > 140/90 Patient was informed and verbally consented to the use of an ambient scribe for clinic note documentation during this visit. Visit time spent on chart review, interview, assessment, orders, documentation. Coding Level of Care Code Est Pt Level 3 (76317) Complex visit Add On G2211 Diagnoses Sinus bradycardia R00.1 Essential hypertension I10 CPT Codes EKG - CPT: 13594-[id number], Complete ([id number]) Time Spent (min) 24
[2025-08-21 08:50] VITALS: BP 142/80; PULSE 45; BMI 23.3
--- OUTSIDE RECORDS SUMMARY | 2025-08-21 08:59 | XMS_ITS | Clinical Summary ---
Author Organization [facility] Address [address] [place] [address] Phone Care Team Providers Care Welt Treater Name Role Phone AlineShelbi Abigail COX Primary [...] 2006 OSTEOPOROSIS SCREENING INITI AL (ONE-TIME) 2021 INFLUENZA VACCINE (#1) 2025 , 07/19/2021 COVID-19 VACCINE (3 - 2024-2 6 season) 2025 07/18/2023, 02/22/2022 RSV VACCINE (1 - 1-dose [...] topic Medical Devices Not on file Insurance CIGNA PPO CIGNA PPO CIGNA PPO CIGNA PPO CIGNA PPO CIGNA PPO Care Teams Welt Treater Relationship Specialty Start Date End Date Shelbi Mireles NP [address] [place] [address] PCP - General Nurse Practitioner 08/07/23 Additional Source Comments The information contained in this document represents components of the legal health record. It is not the complete legal health record.[facility]
--- OUTSIDE RECORDS SUMMARY | 2025-08-21 08:59 | XMS_ITS | Clinical Summary ---
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
== END 2025-08-21 09:13 | disposition home or self-care (01) ==
PROVIDERS: Visit Provider Nurse Practitioner Family
DX: R00.1 Bradycardia, unspecified (principal); I10 Essential (primary) hypertension
CPT/HCPCS: 93010; 99213; G2211

== ENCOUNTER → 2025-08-21 08:38 | Outpatient (BNVA) | payer MEDICARE, SELFPAY | PROVIDERS: Visit Provider Nurse Practitioner Family | DX: I10 Essential (primary) hypertension (principal); R00.1 Bradycardia, unspecified; Z87.891 Personal history of nicotine dependence; Z79.82 Long term (current) use of aspirin; E78.5 Hyperlipidemia, unspecified | CPT/HCPCS: 93005; 99212 ==